=== PATIENT | female | born 1950 | race Caucasian/White ===

== ENCOUNTER 2016-09-12 14:30 | Observation (INO) | payer OTHER, BC ==
--- NOTE | 2016-09-12 14:58 | PDOC ---
History of Present Illness - History of Present Illness Initial Comments: 09/12/16 15:46 The patient is a 66 year old female, with a significant past medical history of hypertension, CAD s/p 2 cardiac stents and a right femoral artery stent (June 2016) on Plavix, diabetes type II, vertigo and polymyalgia, who presents to the emergency department with vertigo, headache and left sided facial tightness for two weeks. She states she has been walking from side to side today and was nervous about falling, however, denies falling. She reports taking her meclizine today without alleviation of her symptoms. She reports the meclizine usually resolves her dizziness, but was prompted to come in to the ED today when the dizziness persisted. She states her headaches and dizziness is intermittent, but reports her current symptoms have lasted for about 3 hours. She freports her headache is a 7/10 in severity and localzed to the left temporal region. She attributes the onset of her symptoms to increased stress during preparation for her daughter's wedding which was this past Friday. She also reports recently changing the prescription in her glasses and developing a headache and dizziness. She states she reverted to her previous pair of glasses with the older prescription, but reports her dizziness persisted. Pt denies any dysarthria, diplopia, vision changes, numbness/weakness/tingling. hearing changes She denies chest pain and shortness of breath. She denies fever, chills, nausea , vomit, diarrhea and constipation. She denies dysuria, frequency, urgency and hematuria. Allergies: NKDA Past surgical history: cholecystectomy, s/p 3 stents (2016) Social history:Denies toxic habits PCP - Dr. Cee Rheumatology - Dr. Mcgee Neurologist - Dr. Cruz <Shreya Lai - Last Filed: 09/12/16 19:13> <Estrada Herrera - Last Filed: 09/12/16 19:19> - General Chief Complaint: Headache Stated Complaint: HEADACHE, DIZZINESS Time Seen by Provider: 09/12/16 14:33 Past History <Shreya Lai - Last Filed: 09/12/16 19:13> - Past Medical History Anemia: No Asthma: No Cancer: No Cardiac Disorders: Yes (CARDIAC STENT X1) CVA: No COPD: No CHF: No Dementia: No Diabetes: Yes (TYPE II) GI Disorders: No Disorders: No HTN: Yes Hypercholesterolemia: Yes Liver Disease: No Suicide Attempt (Hx): No Seizures: No Thyroid Disease: No Other medical history: VERTIGO - Surgical History Abdominal Surgery: No Appendectomy: No Cardiac Surgery: Yes (STENTING) Cholecystectomy: Yes (2015) Lung Surgery: No Neurologic Surgery: No Orthopedic Surgery: Yes (r. knee arthroscopy) - Immunization History TDAP Vaccination: Yes Immunization Up to Date: Yes - Psycho/Social/Smoking Cessation Hx Anxiety: No Suicidal Ideation: No Smoking Status: No Smoking History: Never smoked Have you smoked in the past 12 months: No Number of Cigarettes Smoked Daily: 0 Information on smoking cessation initiated: No Hx Alcohol Use: Yes (OCCAS) Drug/Substance Use Hx: No Substance Use Type: None, Alcohol Hx Substance Use Treatment: No <Estrada Herrera - Last Filed: 09/12/16 19:19> - Past Medical History Allergies/Adverse Reactions: Allergies Allergy/AdvReac Type Severity Reaction Status Date / Time No Known Allergies Allergy Verified 09/12/16 14:33 Home Medications: Ambulatory Orders Aspirin [ASA -] 81 mg PO DAILY 05/13/13 Clopidogrel Bisulfate [Plavix -] 75 mg PO DAILY 05/13/13 Meclizine HCl [Antivert -] 25 mg PO PRN PRN 05/13/13 Metformin HCl [Glucophage -] 500 mg PO BID 05/13/13 Metoprolol Succinate [Toprol XL -] 200 mg PO DAILY 05/13/13 Ranolazine [Ranexa] 500 mg PO DAILY 09/05/14 Omeprazole [Prilosec (RX)] 20 mg PO DAILY 03/13/15 Atorvastatin Ca [Lipitor] 40 mg PO HS 09/12/16 Review of Systems - Review of Systems Able to Perform ROS?: Yes Comments:: 09/12/16 15:47 CONSTITUTIONAL: (+) fatigue. No reported: Fever, Chills, Diaphoresis, Generalized Weakness, Malaise, Loss of Appetite HEENT: No reported: Rhinorrhea, Nasal Congestion, Throat Pain, Throat Swelling, Difficulty Swallowing, Mouth Swelling, Ear Pain, Eye Pain, Visual Changes CARDIOVASCULAR: No reported: Chest Pain, Syncope, Palpitations, Irregular Heart Rate, Lightheadedness, Peripheral Edema RESPIRATORY: No reported: Cough, Shortness of Breath, SOB with Exertion, Orthopnea, Wheezing , Stridor, Hemoptysis GASTROINTESTINAL: No reported: Abdominal pain, Abdominal Distension, Nausea, Vomiting, Diarrhea, Constipation, Melena, Hematochezia GENITOURINARY: No reported: Dysuria, Frequency, Urgency, Hesitancy, Flank Pain, Genital Pain MUSCULOSKELETAL: No reported: Myalgia, Arthralgia, Joint Swelling, Back pain, Neck Pain SKIN: No reported: Rash, Itching, Pallor HEMEATOLOGIC/IMMUNOLOGIC: No reported: Easy Bleeding, Easy Bruising, Lymphadenopathy, Frequent infections ENDOCRINE: No reported: Unexplained Weight Gain, Unexplained Weight Loss, Heat Intolerance , Cold Intolerance NEUROLOGIC: (+) Headache,Vertigo,Unsteady Gait, ""tightness to left face"". No reported: Focal Weakness, Paresthesias, Lightheadedness, Seizure, Mental Status Changes, Incontinence PSYCHIATRIC: No reported: Anxiety, Depression <Shreya Lai - Last Filed: 09/12/16 19:13> *Physical Exam - Vital Signs Last Vital Signs Temp Pulse Resp BP Pulse Ox 98.1 F 82 18 136/81 98 09/12/16 14:30 09/12/16 14:30 09/12/16 14:30 09/12/16 14:30 09/12/16 14:30 - Physical Exam Comments: 09/12/16 15:47 GENERAL: The patient is awake, alert, and fully oriented, Nontoxic - in no acute distress. HEAD: Normocephalic, atraumatic. EYES: extraocular movements intact, sclera anicteric, conjunctiva clear. ENT: Normal voice, Moist mucous membranes. NECK: Normal range of motion, supple LUNGS: Breath sounds equal, clear to auscultation bilaterally. No wheezes, no rhonchi, no rales. HEART: Regular rate and rhythm, without murmur, rub or gallop. ABDOMEN: Soft, nontender, normoactive bowel sounds. No guarding, no rebound.No CVA tenderness EXTREMITIES: Normal range of motion, no edema. No clubbing or cyanosis. No cords, erythema, or tenderness. PSYCH: Normal mood, normal affect. SKIN: Warm, Dry, normal turgor, NEUROLOGICAL: Mental status: The patient is oriented x3. Cranial nerves: Cranial nerves II through XII are intact Motor: The upper extremities are 5 over 5 in all muscle groups. The lower extremities are 5 over 5 in all muscle groups. No pronator drift. Sensation: (+)slight decrease in sensation to light touch on the left face. Sensation is intact to light touch throughout otherwise. Neg romberg Cerebellar: Eleehg-kiwrbm-ecyd is normal in both upper extremities. Heel-knee- alarcon is normal in both lower extremities. Reflexes: 2+ and symmetric in the upper and lower extremities. Gait: Normal. Heel and toe walking are normal. Tandem gait is normal. <Shreya Lai - Last Filed: 09/12/16 19:13> - Vital Signs Last Vital Signs Temp Pulse Resp BP Pulse Ox 98.1 F 82 18 136/81 98 09/12/16 14:30 09/12/16 14:30 09/12/16 14:30 09/12/16 14:30 09/12/16 14:30 <Estrada Herrera - Last Filed: 09/12/16 19:19> Heart Score/ECG Review - ECG Impressions Comment:: 09/12/16 15:35 Twelve-lead EKG was performed and reviewed by me. There is normal sinus rhythm with a normal rate. rate of 79 The axis is normal. The intervals are normal. There is normal R wave progression There are no ST or T wave abnormalities. Impression: Normal twelve-lead EKG <Estrada Herrera - Last Filed: 09/12/16 19:19> ED Treatment Course - LABORATORY CBC & Chemistry Diagram: 09/12/16 12:25 09/12/16 12:25 - RADIOLOGY Radiograph Interpretation: 09/12/16 16:[address] was read by Dr. Ochoa at 16:11 Impression: mild volume loss without gross evidence of acute intracranial pathology. - Medications Given in the ED: ED Medications Discontinued Medications Generic Name Dose Route Start Last Admin Trade Name Freq PRN Reason Stop Dose Admin Diazepam 2 mg 09/12/16 15:15 09/12/16 15:30 Valium - PO 09/12/16 15:16 2 mg ONCE ONE Administration Metoclopramide HCl 10 mg 09/12/16 15:14 09/12/16 15:34 Reglan Injection - IVPUSH 09/12/16 15:15 10 mg ONCE ONE Administration <Shreya Lai - Last Filed: 09/12/16 19:13> - LABORATORY CBC & Chemistry Diagram: 09/12/16 12:25 09/12/16 12:25 <Estrada Herrera - Last Filed: 09/12/16 19:19> Medical Decision Making - Medical Decision Making 09/12/16 Dr. Espinzoa was called at the office at 16:[address] Cee's patient, however, Dr. Espinoza requests [facility] admission for Eduardo Diaz. [facility] were sent a microblog at 17:00 09/12/16 19:11 Dr. Mott was consulted as per the request of the patient's neurologist, Dr. Cruz. The patient's case was discussed. <Shreya Lai - Last Filed: 09/12/16 19:13> - Medical Decision Making 09/12/16 15:35 66y F hx of htn, cad s/p 2 stents, righ femoral artery statent, dm2, polymyalgia rhemuatica presents with complaing of feeling intermittently vertiginous with mild left sided headache and facial numbness/tightness for the past 2 weeks. pt states she has hx of vertigo int he past and took vertigo with releif bu thas not been helping her. pt denies any n/v, cp, palpitations, sob, diaphoresis, abd pain, back pain, neck pain. pts exam noted for mildly deminished sensation on the left face, but exam otherwise unreamrkable including no cerebellar findings, nystagmus nor lateralizing findings exept facial sensation. differential includes vertigo but due to associated facial symptoms, consider central cause will ck labs, will obtain ct head will give asa if head negative reglan/valium will reassess neuro: nancy A portion of this note was documented by [employer] under my direction. I have reviewed the details of the note, within reason, and agree with the documentation with the following case summary and management plan written by me 09/12/16 16:[address] neg for acute pathology pt feeling beter with improved dizziness/headache but still have some facial sensation deficits will admit to obs case dw dr. espinoza, he does not abdmit here, requests hospitalist admission 09/12/16 18:14 case srikanth mcnamara agree with tele observation will consult neuro Case discussed in detail with admitting physician including history, physical exam and ancillary studies. Admitting physician has assumed care for the patient, will follow all pending diagnostics and will complete the evaluation and treatment. 09/12/16 19:19 case srikanth cruz - states dr. Mott is covering for him. case srikanth Mott agree with observation and will likely need MRI in am <Estrada Herrera - Last Filed: 09/12/16 19:19> *DC/Admit/Observation/Transfer - Attestations Scribe Attestion: 09/12/16 15:47 Documentation prepared by Shreya Lai, acting as diagnostic medical sonographer for Estrada Herrera MD, <Shreya Lai - Last Filed: 09/12/16 19:13> - Discharge Dispostion Admit: Yes <Estrada Herrera - Last Filed: 09/12/16 19:19> Diagnosis at time of Disposition: Left facial numbness, Vertigo - Discharge Dispostion Condition at time of disposition: Stable
[2016-09-12] MEDS ORDERED: METOCLOPRAMIDE HCL INJECTION 10 MG/2 ML VIAL IVPUSH ONE (15:14)
[2016-09-12] MEDS ORDERED: diazePAM 2 MG TABLET PO ONE (15:15)
[2016-09-12] MEDS ORDERED: diazePAM 2 MG TABLET ONE (15:25)
[2016-09-12 15:47] LABS: BASOPHIL 1.1 % (0-2.0); EOSINOPHIL 1.8 % (0-4.5); MCH 29.2 pg (25.7-33.7); MCHC 33.9 g/dl (32.0-36.0); MEAN CELL VOLUME 86.3 fl (80-96); NEUTROPHILS 58.7 % (42.8-82.8); PLATELET COUNT 210 K/MM3 (134-434); RDW 13.6 % (11.6-15.6); WHITE BLOOD COUNT 6.8 K/mm3 (4.0-10.8)
[2016-09-12 15:59] LABS: ALBUMIN 3.6 g/dl (3.5-5.0); ALK PHOS 75 U/L (32-92); ANION GAP 5 (8-16); BILIRUBIN,TOTAL 0.4 mg/dl (0.2-1.0); CO2 26 mmol/L (22-28); GLUCOSE,RANDOM 127 mg/dl (74-106); SGOT/AST 19 U/L (10-42); SGPT/ALT 17 U/L (10-40); TOT PROT 6.3 g/dl (6.4-8.3)
[2016-09-12] MEDS ORDERED: ASPIRIN 81 MG CHEWABLE TABLETS PO ONE (16:43)
[2016-09-12] MEDS ORDERED: ASPIRIN 81 MG CHEWABLE TABLETS ONE (16:54)
[2016-09-12 17:03] LABS: PH,URINE 5.5 (4.5-8); URINE APPEARANCE Clear; URINE BILIRUBIN Negative (NEGATIVE); URINE GLUCOSE (UA) Negative (NEGATIVE); URINE KETONE Negative (NEGATIVE); URINE LEUK ESTERASE Negative (NEGATIVE); URINE NITRITE Negative (NEGATIVE); URINE PROTEIN Negative (NEGATIVE); URINE UROBILINOGEN 0.2 E.U/dl (0.2-1.0)
[2016-09-12 17:04] LABS: URINE BLOOD 2+ (NEGATIVE); URINE COLOR YELLOW
[2016-09-12 17:26] LABS: URINE WBC 0-2 (3-5)
--- NOTE | 2016-09-12 17:51 | HP ---
CHIEF COMPLAINT: PCP: HISTORY OF PRESENT ILLNESS: The patient is a 66 year old female, with a significant past medical history of hypertension, CAD s/p 2 cardiac stents and a right femoral artery stent (June 2016) on Plavix, diabetes type II, vertigo and polymyalgia, who presents to the emergency department with vertigo, headache and left sided facial tightness for two weeks. She states she has been walking from side to side today and was nervous about falling, however, denies falling. She reports taking her meclizine today without alleviation of her symptoms. She reports the meclizine usually resolves her dizziness, but was prompted to come in to the ED today when the dizziness persisted. She states her headaches and dizziness is intermittent, but reports her current symptoms have lasted for about 3 hours. She freports her headache is a 7/10 in severity and localzed to the left temporal region. She attributes the onset of her symptoms to increased stress during preparation for her daughter's wedding which was this past Friday. She also reports recently changing the prescription in her glasses and developing a headache and dizziness. She states she reverted to her previous pair of glasses with the older prescription, but reports her dizziness persisted. Pt denies any dysarthria, diplopia, vision changes, numbness/weakness/tingling. hearing changes She denies chest pain and shortness of breath. She denies fever, chills, nausea , vomit, diarrhea and constipation. She denies dysuria, frequency, urgency and hematuria. Allergies: NKDA Past surgical history: cholecystectomy, s/p 3 stents (2016) Social history:Denies toxic habits PCP - Dr. Cee Rheumatology - Dr. Mcgee Neurologist - Dr. Almanzar ER course was notable for: (1)labs, ekg: unremarkable (2)head ct urnemarkable for acute intracranial pathology (3) valium, reglan, asa Recent Travel: PAST MEDICAL HISTORY: PAST SURGICAL HISTORY: Social History: Smoking: Alcohol: Drugs: Family History: Allergies No Known Allergies Allergy (Verified 09/12/16 14:33) HOME MEDICATIONS: Home Medications Medication Instructions Recorded Aspirin [ASA -] 81 mg PO DAILY 05/13/13 Clopidogrel Bisulfate [Plavix -] 75 mg PO DAILY 05/13/13 Meclizine HCl [Antivert -] 25 mg PO PRN PRN 05/13/13 Metformin HCl [Glucophage -] 500 mg PO BID 05/13/13 Metoprolol Succinate [Toprol XL -] 200 mg PO DAILY 05/13/13 Ranolazine [Ranexa] 500 mg PO DAILY 09/05/14 Omeprazole [Prilosec (RX)] 20 mg PO DAILY 03/13/15 REVIEW OF SYSTEMS CONSTITUTIONAL: Absent: fever, chills, diaphoresis, generalized weakness, malaise, loss of appetite, weight change HEENT: Absent: rhinorrhea, nasal congestion, throat pain, throat swelling, difficulty swallowing, mouth swelling, ear pain, eye pain, visual changes CARDIOVASCULAR: Absent: chest pain, syncope, palpitations, irregular heart rate, lightheadedness , peripheral edema RESPIRATORY: Absent: cough, shortness of breath, dyspnea with exertion, orthopnea, wheezing, stridor, hemoptysis GASTROINTESTINAL: Absent: abdominal pain, abdominal distension, nausea, vomiting, diarrhea, constipation, melena, hematochezia GENITOURINARY: Absent: dysuria, frequency, urgency, hesitancy, hematuria, flank pain, genital pain MUSCULOSKELETAL: Absent: myalgia, arthralgia, joint swelling, back pain, neck pain SKIN: Absent: rash, itching, pallor HEMATOLOGIC/IMMUNOLOGIC: Absent: easy bleeding, easy bruising, lymphadenopathy, frequent infections ENDOCRINE: Absent: unexplained weight gain, unexplained weight loss, heat intolerance, cold intolerance NEUROLOGIC: Absent: headache, focal weakness or paresthesias, dizziness, unsteady gait, seizure, mental status changes, bladder or bowel incontinence PSYCHIATRIC: Absent: anxiety, depression, suicidal or homicidal ideation, hallucinations. PHYSICAL EXAMINATION Vital Signs - 24 hr 09/12/16 14:30 Temperature 98.1 F Pulse Rate 82 Respiratory 18 Rate Blood Pressure 136/81 O2 Sat by Pulse 98 Oximetry (%) GENERAL: Awake, alert, and fully oriented, in no acute distress. HEAD: Normal with no signs of trauma. EYES: Pupils equal, round and reactive to light, extraocular movements intact, sclera anicteric, conjunctiva clear. No lid lag. EARS, NOSE, THROAT: Ears normal, nares patent, oropharynx clear without exudates. Moist mucous membranes. NECK: Normal range of motion, supple without lymphadenopathy, JVD, or masses. LUNGS: Breath sounds equal, clear to auscultation bilaterally. No wheezes, and no crackles. No accessory muscle use. HEART: Regular rate and rhythm, normal S1 and S2 without murmur, rub or gallop. ABDOMEN: Soft, nontender, not distended, normoactive bowel sounds, no guarding, no rebound, no masses. No hepatomegaly or splenomegaly. MUSCULOSKELETAL: Normal range of motion at all joints. No bony deformities or tenderness. No CVA tenderness. UPPER EXTREMITIES: 2+ pulses, warm, well-perfused. No cyanosis. No clubbing. No peripheral edema. LOWER EXTREMITIES: 2+ pulses, warm, well-perfused. No calf tenderness. No peripheral edema. NEUROLOGICAL: Cranial nerves II-XII intact. Normal speech. Normal gait. PSYCHIATRIC: Cooperative. Good eye contact. Appropriate mood and affect. SKIN: Warm, dry, normal turgor, no rashes or lesions noted, normal capillary refill. Laboratory Results - last 24 hr 09/12/16 09/12/16 09/12/16 12:25 12:25 16:55 WBC 6.8 D RBC 4.19 Hgb 12.3 Hct 36.2 MCV 86.3 MCHC 33.9 RDW 13.6 Plt Count 210 D MPV 9.0 Neutrophils % 58.7 Lymphocytes % 31.8 D Monocytes % 6.6 Eosinophils % 1.8 Basophils % 1.1 Sodium 138 Potassium 4.0 Chloride 107 Carbon Dioxide 26 Anion Gap 5 L BUN 12 Creatinine 1.0 Creat Clearance w eGFR 55.14 Random Glucose 127 H Calcium 9.0 Total Bilirubin 0.4 D AST 19 ALT 17 Alkaline Phosphatase 75 Total Protein 6.3 L Albumin 3.6 Urine Color Yellow Urine Appearance Clear Urine pH 5.5 Ur Specific [place] 1.020 Urine Protein Negative Urine Glucose (UA) Negative Urine Ketones Negative Urine Blood 2+ H Urine Nitrite Negative Urine Bilirubin Negative Urine Urobilinogen 0.2 e.u/dl Ur Leukocyte Esterase Negative Urine RBC 2-4 Urine WBC 0-2 ASSESSMENT/PLAN:
[2016-09-12] MEDS ORDERED: MECLIZINE HCL 25 MG TABLET (FP) PO PRN (18:13)
[2016-09-12] MEDS ORDERED: ATORVASTATIN CA 80 MG TABLET (FP) PO ONE (18:14)
[2016-09-12 20:53] VITALS: BMI 29.5
[2016-09-12] MEDS ORDERED: INSULIN SLIDING SCALE (NOVOLOG) 1 VIAL SQ SCH (22:00)
[2016-09-12] MEDS ORDERED: diazePAM 5 MG TABLET PO ONE (22:00)
--- NOTE | 2016-09-12 22:51 | HP ---
CHIEF COMPLAINT: headache, dizziness PCP: Dr. Jaylon Cee HISTORY OF PRESENT ILLNESS: This is a 66 year old female with PMH HTN, CAD s/p stents x 2, R femoral artery stent 06/2016, DM2, vertigo, polymyalgia presented to the ED with dizziness and headache x 2 weeks, not relieved with meclizine. Pt states that it became much more severe today with left facial tightness and numbness. Pt states it is better now, but still with dull pain to left side of head, pt points to jehovah's witness. Denies nausea, vomiting, abdominal pain. ER course was notable for: (1) CT head with no acute changes (2) labs WNL Recent Travel: pt denies PAST MEDICAL HISTORY: HTN CAD s/p 2 stents DM2 vertigo polymyalgia PAST SURGICAL HISTORY: R femoral artery stent 06/2016 cholcystectomy 2015 R knee arthroscopy Social History: Smoking: pt denies Alcohol: pt denies Drugs: pt denies Family History: mother age 70s, CVA Alzhemier's disease father age 63, liver CA, HTN (not a drinker) brother age 69, cirrhosis (ETOH), DM daughter with IBS Allergies No Known Allergies Allergy (Verified 09/12/16 14:33) HOME MEDICATIONS: 3 Medication Instructions Recorded Aspirin [ASA -] 81 mg PO DAILY 05/13/13 Clopidogrel Bisulfate [Plavix -] 75 mg PO DAILY 05/13/13 Meclizine HCl [Antivert -] 25 mg PO PRN PRN 05/13/13 Metformin HCl [Glucophage -] 500 mg PO BID 05/13/13 Metoprolol Succinate [Toprol XL -] 200 mg PO DAILY 05/13/13 Ranolazine [Ranexa] 500 mg PO DAILY 09/05/14 Omeprazole [Prilosec (RX)] 20 mg PO DAILY 03/13/15 Atorvastatin Ca [Lipitor] 40 mg PO HS 09/12/16 REVIEW OF SYSTEMS CONSTITUTIONAL: Absent: fever, chills, diaphoresis, generalized weakness, malaise, loss of appetite, weight change HEENT: Absent: rhinorrhea, nasal congestion, throat pain, throat swelling, difficulty swallowing, mouth swelling, ear pain, eye pain, visual changes CARDIOVASCULAR: Absent: chest pain, syncope, palpitations, irregular heart rate, lightheadedness , peripheral edema RESPIRATORY: Absent: cough, shortness of breath, dyspnea with exertion, orthopnea, wheezing, stridor, hemoptysis GASTROINTESTINAL: Absent: abdominal pain, abdominal distension, nausea, vomiting, diarrhea, constipation, melena, hematochezia GENITOURINARY: Absent: dysuria, frequency, urgency, hesitancy, hematuria, flank pain, genital pain MUSCULOSKELETAL: Absent: myalgia, arthralgia, joint swelling, back pain, neck pain SKIN: Absent: rash, itching, pallor HEMATOLOGIC/IMMUNOLOGIC: Absent: easy bleeding, easy bruising, lymphadenopathy, frequent infections ENDOCRINE: Absent: unexplained weight gain, unexplained weight loss, heat intolerance, cold intolerance NEUROLOGIC: Present: dizziness, headache, unsteady gait Absent: focal weakness or paresthesias, seizure, mental status changes, bladder or bowel incontinence PSYCHIATRIC: Absent: anxiety, depression, suicidal or homicidal ideation, hallucinations. PHYSICAL EXAMINATION Vital Signs - 24 hr 3 09/12/16 09/12/16 09/12/16 14:30 18:48 22:05 Temperature 98.1 F 97.8 F 97.6 F Pulse Rate 82 82 Pulse Rate [ 86 Left Apical] Respiratory 18 16 18 Rate Blood Pressure 136/81 94/55 Blood Pressure 137/90 [Left Arm] O2 Sat by Pulse 98 99 100 Oximetry (%) GENERAL: Awake, alert, and fully oriented, in no acute distress. HEAD: Normal with no signs of trauma. EYES: Pupils equal, round and reactive to light, extraocular movements intact, sclera anicteric, conjunctiva clear. No lid lag. EARS, NOSE, THROAT: Ears normal, nares patent, oropharynx clear without exudates. Moist mucous membranes. NECK: Normal range of motion, supple without lymphadenopathy, JVD, or masses. LUNGS: Breath sounds equal, clear to auscultation bilaterally. No wheezes, and no crackles. No accessory muscle use. HEART: Regular rate and rhythm, normal S1 and S2 without murmur, rub or gallop. ABDOMEN: Soft, nontender, not distended, normoactive bowel sounds, no guarding, no rebound, no masses. No hepatomegaly or splenomegaly. MUSCULOSKELETAL: Normal range of motion at all joints. No bony deformities or tenderness. No CVA tenderness. UPPER EXTREMITIES: 2+ pulses, warm, well-perfused. No cyanosis. No clubbing. No peripheral edema. LOWER EXTREMITIES: 2+ pulses, warm, well-perfused. No calf tenderness. No peripheral edema. NEUROLOGICAL: Cranial nerves II-XII intact. Normal speech. Muscle strength: right arm raise 4+/5, left 5/5, elbow flexion 5/5 bilat, extension 5/5 bilat, leg raise 4+/5 bilat, plantar flexion and dorsiflexion 5/5 bilat. light touch intact and equal right and left face and right and left upper extremity PSYCHIATRIC: Cooperative. Good eye contact. Appropriate mood and affect. SKIN: Warm, dry, normal turgor, no rashes or lesions noted, normal capillary refill. Laboratory Results - last 24 hr 3 09/12/16 09/12/16 09/12/16 09/12/16 12:25 12:25 16:55 22:52 WBC 6.8 D RBC 4.19 Hgb 12.3 Hct 36.2 MCV 86.3 MCHC 33.9 RDW 13.6 Plt Count 210 D MPV 9.0 Neutrophils % 58.7 Lymphocytes % 31.8 D Monocytes % 6.6 Eosinophils % 1.8 Basophils % 1.1 Sodium 138 Potassium 4.0 Chloride 107 Carbon Dioxide 26 Anion Gap 5 L BUN 12 Creatinine 1.0 Creat Clearance w eGFR 55.14 POC Glucometer 121 Random Glucose 127 H Calcium 9.0 Total Bilirubin 0.4 D AST 19 ALT 17 Alkaline Phosphatase 75 Total Protein 6.3 L Albumin 3.6 Urine Color Yellow Urine Appearance Clear Urine pH 5.5 Ur Specific [place] 1.020 Urine Protein Negative Urine Glucose (UA) Negative Urine Ketones Negative Urine Blood 2+ H Urine Nitrite Negative Urine Bilirubin Negative Urine Urobilinogen 0.2 e.u/dl Ur Leukocyte Esterase Negative Urine RBC 2-4 Urine WBC 0-2 CT/HEAD CT WITHOUT CONTRAST Left side facial numbness CT scan of the brain without intravenous contrast. There is mild volume loss, ventricular dilatation and periventricular chronic microvascular ischemic changes. No mass lesion, focal acute infarct or intracranial hemorrhage is seen. There is no shift of the midline structures. Minimal mucosal thickening in the ethmoid air cells. The mastoid air cells are well aerated and the calvarium is intact. Impression Mild volume loss without gross evidence of acute intracranial pathology. Correlate clinically to determine further evaluation and follow-up. Reported By: Jessica Ochoa MD 09/12/16 1611 CHEST X-RAY PORTABLE* Preadmission. Baseline. Portable chest x ray A frontal view of the chest was obtained. Compared to prior chest x-ray dated 09/21/2014 The cardiac silhouette is within normal limits in size with mild unfolding of the aortic arch. The lung is clear. Mild to moderate elevation of the left hemidiaphragm. Mediastinum and visualized osseous structures appear intact . Impression: No significant interval change or acute lung disease is present. Reported By: Jessica Ochoa MD 09/12/16 1836 ECG NSR, rate 79, QTC 415 No STT wave changes ASSESSMENT/PLAN: 66yF with PMH HTN, CAD s/p 2 stents, R fem artery stent, DM2, vertigo, polymyalgia presented with dizziness, headache and L facial tightness. headache, dizziness: vertigo vs r/o TIA/CVA - MRI ordered - neuro consult - meclizine PRN - ESR/CRP to r/o temporal arteritis given temporal pain HTN/CAD - cont home meds, recent BP reading low after valium, hold parameters in place. - cont home ASA, home lipitor increased to 80 - cont plavix, ranexa DM2 - hold metformin for now - novolog SS with BGM AC/HS DVT PPX - chemoprophylaxis deferred as Expected LOS less than 48h, reassess indication if stay exceeds FEN - tolerating po - bmp in am - diabetic diet Dispo: Pt currently requires inpatient observation for management of her emergent condition. Visit type - Emergency Visit Emergency Visit: Yes ED Registration Date: 09/12/16 Care time: The patient presented to the Emergency Department on the above date and was hospitalized for further evaluation of their emergent condition. - New Patient This patient is new to me today: Yes Date on this admission: 09/12/16 - Critical Care Critical Care patient: No
[2016-09-13] MEDS: INSULIN SLIDING SCALE (NOVOLOG) 1 VIAL SQ SCH ×2 (06:42→12:21)
[2016-09-13] MEDS ORDERED: metFORMIN HCL 500 MG TABLET (FP) PO SCH (07:00)
--- NOTE | 2016-09-13 08:08 | EKG ---
Test Reason : Blood Pressure : / mmHG Vent. Rate : 079 BPM Atrial Rate : 079 BPM P-R Int : 164 ms QRS Dur : 088 ms QT Int : 362 ms P-R-T Axes : 034 059 052 degrees QTc Int : 415 ms NORMAL SINUS RHYTHM NORMAL ECG NO PREVIOUS ECGS AVAILABLE Confirmed by BHASKAR SIMPSON MD ([id number]) on 09/13/2016 8:07:31 AM Referred By: MD PENA Confirmed By:BHASKAR SIMPSON MD
--- NOTE | 2016-09-13 08:35 | CON.NEURO ---
Consult - History of Present Illness History of Present Illness: cc 66 year old female hsitory of HTN, CAD s/p stent , DM , polymyalgia rheumatica ( last esr was 30s , and not being treated wtih medication at this time). She felt vertigo sensation and she also felt there is mild headhace and some stiffness in her neck and it was not going away. she denies tinging or numbness, dysphagia , dysarthria or diplopia. She denies any history of stroke. she is nonsmoker. she denies any generalized aches or pain, no fever or jaw claudication. - Past Medical History Cardio/Vascular: Yes: CAD, HTN, Hyperlipdemia ...LMP Comment: PATIENT IS A 66 YEAR OLD ...: No Endocrine: Yes: Diabetes Mellitus - Alcohol/Substance Use Hx Alcohol Use: Yes (OCCAS) - Smoking History Smoking history: Never smoked Have you smoked in the past 12 months: No Aproximately how many cigarettes per day: 0 Home Medications - Allergies Allergies/Adverse Reactions: Allergies Allergy/AdvReac Type Severity Reaction Status Date / Time No Known Allergies Allergy Verified 09/12/16 14:33 - Home Medications Home Medications: Ambulatory Orders Aspirin [ASA -] 81 mg PO DAILY 05/13/13 Clopidogrel Bisulfate [Plavix -] 75 mg PO DAILY 05/13/13 Meclizine HCl [Antivert -] 25 mg PO PRN PRN 05/13/13 Metformin HCl [Glucophage -] 500 mg PO BID 05/13/13 Metoprolol Succinate [Toprol XL -] 200 mg PO DAILY 05/13/13 Ranolazine [Ranexa] 500 mg PO DAILY 09/05/14 Omeprazole [Prilosec (RX)] 20 mg PO DAILY 03/13/15 Atorvastatin Ca [Lipitor] 40 mg PO HS 09/12/16 Physical Exam-Neuro Vital Signs: Vital Signs Temperature 98.5 F 09/13/16 06:16 Pulse Rate 74 09/13/16 06:16 Respiratory Rate 18 09/13/16 06:16 Blood Pressure 119/67 09/13/16 06:16 O2 Sat by Pulse Oximetry (%) 100 09/13/16 06:16 NIH Stroke Scale - Total Score NIH Stroke Scale Score: 0 Assessment/Plan cc 66 year old female hsitory of HTN, CAD s/p stent , DM , polymyalgia rheumatica ( last esr was 30s , and not being treated wtih medication at this time). She felt vertigo sensation and she also felt there is mild headhace and some stiffness in her neck and it was not going away. she denies tinging or numbness, dysphagia , dysarthria or diplopia. She denies any history of stroke. she is nonsmoker. she denies any generalized aches or pain, no fever or jaw claudication. PAST MEDICAL HISTORY: as above HTN CAD s/p 2 stents DM2 vertigo polymyalgia PAST SURGICAL HISTORY: R femoral artery stent 06/2016 cholcystectomy 2014 R knee arthroscopy HOME MEDICATIONS: 3 Medication Instructions Recorded Aspirin [ASA -] 81 mg PO DAILY 05/13/13 Clopidogrel Bisulfate [Plavix -] 75 mg PO DAILY 05/13/13 Meclizine HCl [Antivert -] 25 mg PO PRN PRN 05/13/13 Metformin HCl [Glucophage -] 500 mg PO BID 05/13/13 Metoprolol Succinate [Toprol XL -] 200 mg PO DAILY 05/13/13 Ranolazine [Ranexa] 500 mg PO DAILY 09/05/14 Omeprazole [Prilosec (RX)] 20 mg PO DAILY 03/13/15 Atorvastatin Ca [Lipitor] 40 mg PO HS 09/12/16 Neurological Examination alert oriented x 3 , follow command CN all intact eomi, and no nystagmus was seen FTN and heel to alarcon is normal, no nystagmus was seen sensation is normal no temporal tenderness ct head unremarkable Assessment- Most likley she had Benign Positional vertigo, and mild headache could be tension headache ( unlikley to be temporal arteritis ) Plan-- given history of polymyalgia suggest to do esr - mri of brain to rule out stroke - continue aspirin , plavix and statin as before PT if mri of brain and esr is normal, she can be discharged and follow up with me thanks mayra mauro MD
[2016-09-13] MEDS ORDERED: SODIUM CHLORIDE 1,000 ML IV STA (08:42)
[2016-09-13 08:51] LABS: ANION GAP 5 (8-16); CALCIUM 8.7 mg/dl (8.4-10.2); CO2 25 mmol/L (22-28); CREATININE 0.9 mg/dl (0.6-1.3); GLUCOSE,RANDOM 179 mg/dl (74-106); MAGNESIUM 1.6 mg/dL (1.8-2.4); PHOSPHOROUS 2.6 mg/dl (2.5-4.6)
[2016-09-13] MEDS ORDERED: METOCLOPRAMIDE HCL INJECTION 10 MG/2 ML VIAL IVPUSH ONE (09:15)
[2016-09-13] MEDS ORDERED: ACETAMINOPHEN 1000 MG/100 ML VIAL (NON FORMULARY) IVPB ONE (09:15)
[2016-09-13 09:55] LABS: BASOPHIL 0.2 % (0-2.0); EOSINOPHIL 1.3 % (0-4.5); MCH 28.1 pg (25.7-33.7); MCHC 32.4 g/dl (32.0-36.0); MEAN CELL VOLUME 86.8 fl (80-96); MEAN PLT VOLUME 9.4 fl (7.5-11.1); NEUTROPHILS 63.1 % (42.8-82.8); PLATELET COUNT 205 K/MM3 (134-434); RDW 13.7 % (11.6-15.6); WHITE BLOOD COUNT 6.2 K/mm3 (4.0-10.8)
[2016-09-13] MEDS ORDERED: METOPROLOL SUCCINATE 200 MG TAB.SR.24H PO SCH ×2 (10:00)
[2016-09-13] MEDS ORDERED: PANTOPRAZOLE 20 MG TABLET (FP) PO SCH (10:00)
[2016-09-13] MEDS ORDERED: MAGNESIUM SULF 50% (8.12 MEQ/2 ML-1 GM VIAL) IVPB ONE (10:00)
[2016-09-13] MEDS ORDERED: METOPROLOL SUCCINATE 100 MG TAB.SR.24H (FP) PO SCH (10:00)
[2016-09-13] MEDS ORDERED: CLOPIDOGREL BISULFATE 75 MG TABLET (FP) PO SCH (10:00)
[2016-09-13] MEDS ORDERED: RANOLAZINE E.R. 500 MG TABLET (FP) PO SCH (10:00)
[2016-09-13] MEDS ORDERED: ASPIRIN 81 MG CHEWABLE TABLETS PO SCH (10:00)
[2016-09-13] MEDS: MAGNESIUM SULF 50% (8.12 MEQ/2 ML-1 GM VIAL) IVPB ONE ×2 (10:05→10:12)
[2016-09-13 14:27] VITALS: BP 117/66; PULSE 72; TEMP 98.6
--- NOTE | 2016-09-13 14:34 | DS ---
Physical Exam: SUBJECTIVE: Patient seen and examined, reports feeling better, denies any headache, blurred vision, or dizziness OBJECTIVE:This is a 66 year old female with PMH HTN, CAD s/p stents x 2, R femoral artery stent 06/2016, DM2, vertigo, polymyalgia presented to the ED with dizziness and headache x 2 weeks, not relieved with meclizine. Pt states that it became much more severe today with left facial tightness and numbness. Pt states it is better now, but still with dull pain to left side of head, pt points to restorationist. Denies nausea, vomiting, abdominal pain. ER course was notable for: (1) CT head with no acute changes (2) labs WNL Vital Signs Period Temp Pulse Resp BP Sys/Peguero Pulse Ox Last 24 Hr 97.6 F-98.6 F 72-82 18-18 94-119/55-71 97-100 PHYSICAL EXAM GENERAL: The patient is awake, alert, and fully oriented, Nontoxic - in no acute distress. HEAD: Normocephalic, atraumatic. EYES: extraocular movements intact, sclera anicteric, conjunctiva clear. ENT: Normal voice, Moist mucous membranes. NECK: Normal range of motion, supple LUNGS: Breath sounds equal, clear to auscultation bilaterally. No wheezes, no rhonchi, no rales. HEART: Regular rate and rhythm, without murmur, rub or gallop. ABDOMEN: Soft, nontender, normoactive bowel sounds. No guarding, no rebound.No CVA tenderness EXTREMITIES: Normal range of motion, no edema. No clubbing or cyanosis. No cords, erythema, or tenderness. PSYCH: Normal mood, normal affect. NEUROLOGICAL: Mental status: The patient is oriented x3. Cranial nerves: Cranial nerves II through XII are intact Motor: The upper extremities are 5 over 5 in all muscle groups. The lower extremities are 5 over 5 in all muscle groups. No pronator drift. Neg romberg Cerebellar: [id number]-uqzihy-nulg is normal in both upper extremities. Ixff-[id number] is normal in both lower extremities. Reflexes: 2+ and symmetric in the upper and lower extremities. Gait: Normal. Heel and toe walking are normal. Tandem gait is normal. SKIN: Warm, Dry, normal turgor, LABS Laboratory Results - last 24 hr CBC WBC 6.2 K/mm3 (4.0-10.8) 09/13/16 07:00 RBC 4.47 M/mm3 (3.60-5.2) 09/13/16 07:00 Hgb 12.6 GM/dl (10.7-15.3) 09/13/16 07:00 Hct 38.8 % (32.4-45.2) 09/13/16 07:00 MCV 86.8 fl (80-96) 09/13/16 07:00 MCHC 32.4 g/dl (32.0-36.0) 09/13/16 07:00 RDW 13.7 % (11.6-15.6) 09/13/16 07:00 Plt Count 205 K/MM3 (134-434) 09/13/16 07:00 MPV 9.4 fl (7.5-11.1) 09/13/16 07:00 Neutrophils % 63.1 % (42.8-82.8) 09/13/16 07:00 Lymphocytes % 30.0 % (8-40) 09/13/16 07:00 Monocytes % 5.4 % (3.8-10.2) 09/13/16 07:00 Eosinophils % 1.3 % (0-4.5) 09/13/16 07:00 Basophils % 0.2 % (0-2.0) 09/13/16 07:00 ESR 35 mm/hr (0-30) H 09/13/16 07:00 CMP Sodium 137 mmol/L (136-145) 09/13/16 07:00 Potassium 3.7 mmol/L (3.5-5.1) 09/13/16 07:00 Chloride 107 mmol/L (98-107) 09/13/16 07:00 Carbon Dioxide 25 mmol/L (22-28) 09/13/16 07:00 Anion Gap 5 (8-16) L 09/13/16 07:00 BUN 12 mg/dl (7-18) 09/13/16 07:00 Creatinine 0.9 mg/dl (0.6-1.3) 09/13/16 07:00 Creat Clearance w eGFR 55.14 (>60) 09/12/16 12:25 POC Glucometer 143 UNITS (()) 09/13/16 11:33 Random Glucose 179 mg/dl (74-106) H D 09/13/16 07:00 Calcium 8.7 mg/dl (8.4-10.2) 09/13/16 07:00 Phosphorus 2.6 mg/dl (2.5-4.6) 09/13/16 07:00 Magnesium 1.6 mg/dL (1.8-2.4) L 09/13/16 07:00 Total Bilirubin 0.4 mg/dl (0.2-1.0) D 09/12/16 12:25 AST 19 U/L (10-42) 09/12/16 12:25 ALT 17 U/L (10-40) 09/12/16 12:25 Alkaline Phosphatase 75 U/L (32-92) 09/12/16 12:25 C-Reactive Protein < 0.3 MG/DL (0.00-0.3) 09/13/16 07:00 Total Protein 6.3 g/dl (6.4-8.3) L 09/12/16 12:25 Albumin 3.6 g/dl (3.5-5.0) 09/12/16 12:[address]/HEAD CT WITHOUT CONTRAST Left side facial numbness CT scan of the brain without intravenous contrast. There is mild volume loss, ventricular dilatation and periventricular chronic microvascular ischemic changes. No mass lesion, focal acute infarct or intracranial hemorrhage is seen. There is no shift of the midline structures. Minimal mucosal thickening in the ethmoid air cells. The mastoid air cells are well aerated and the calvarium is intact. Impression Mild volume loss without gross evidence of acute intracranial pathology. Correlate clinically to determine further evaluation and follow-up. Reported By: Jessica Ochoa MD 09/12/16 1611 CHEST X-RAY PORTABLE* Preadmission. Baseline. Portable chest x ray A frontal view of the chest was obtained. Compared to prior chest x-ray dated 09/21/2014 The cardiac silhouette is within normal limits in size with mild unfolding of the aortic arch. The lung is clear. Mild to moderate elevation of the left hemidiaphragm. Mediastinum and visualized osseous structures appear intact . Impression: No significant interval change or acute lung disease is present. Reported By: Jessica Ochoa MD 09/12/16 1836 ECG NSR, rate 79, QTC 415 No STT wave changes HOSPITAL COURSE: Patient was admitted from the emergency department to observation for headache, dizziness: vertigo vs r/o TIA/CVA. MRI of brain, no evidence of edema , acute ischemia, or hemorrhage. Dr Cintron, neurologist was consulted and followed. meclizine was given PRN. patient's symptoms was consistent with migraines. IV tylenol, reglan, magnesium was given and patient reports relief from medications. ESR was noted to be slightly elevated, however, patient has a history of polymalgia rheumatica. CRP was WNL. She has a past medical history of hyprtensio and CAD. Home meds was continued and hold parameters were in place. Home ASA, lipitir, plavix and ranexa was continued. PLAN * continue home medications * resume heart healthy diet * follow up with neurologist within 1 week * return precautions reviewed ie chest pain dizziness, shortness of breath. Date of Admission:09/12/16 Date of Discharge: 09/13/16 Minutes to complete discharge: 45 Discharge Summary Reason For Visit: FACIAL NUMBNESS Current Active Problems Left facial numbness (Acute) Vertigo (Acute) Condition: Improved - Instructions Diet, Activity, Other Instructions: resume regular low sodium/low cholestrol diet please resume all medications as prescribed continue taking meclizine as needed for vertigo please follow up with the neurologist within 2 weeks if any new or alarming symptoms develop please return to the emergency department. Referrals: Jean-Paul Mott MD [Staff Physician] - Jaylon Cee MD [Primary Care Provider] - Disposition: HOME - Home Medications Comprehensive Discharge Medication List: Ambulatory Orders Aspirin [ASA -] 81 mg PO DAILY 05/13/13 Clopidogrel Bisulfate [Plavix -] 75 mg PO DAILY 05/13/13 Meclizine HCl [Antivert -] 25 mg PO PRN PRN 05/13/13 Metformin HCl [Glucophage -] 500 mg PO BID 05/13/13 Metoprolol Succinate [Toprol XL -] 200 mg PO DAILY 05/13/13 Ranolazine [Ranexa] 500 mg PO DAILY 09/05/14 Omeprazole [Prilosec (RX)] 20 mg PO DAILY 03/13/15 Atorvastatin Ca [Lipitor] 40 mg PO HS 09/12/16 This patient is new to me today: Yes Date on this admission: 09/13/16 Emergency Visit: Yes ED Registration Date: 09/12/16 Care time: The patient presented to the Emergency Department on the above date and was hospitalized for further evaluation of their emergent condition. Critical Care patient: No - Discharge Referral Referred to [facility] No
== END 2016-09-13 15:35 | disposition home or self-care (01) ==
LOC: FER 14:30 → SUPCPDRO 14:30 → FM/S 19:06
PROVIDERS: ADMIT Internal Medicine; ATTEND Nurse Practitioner Family
PROC: 3E033NZ Introduction of Analgesics, Hypnotics, Sedatives into Peripheral Vein, Percutaneous Approach (ICD-10-PCS; principal; 2016-09-12)
PROC: 3E033GC Introduction of Other Therapeutic Substance into Peripheral Vein, Percutaneous Approach (ICD-10-PCS; 2016-09-12)
PROC: 3E0337Z Introduction of Electrolytic and Water Balance Substance into Peripheral Vein, Percutaneous Approach (ICD-10-PCS; 2016-09-12)
DX: R20.0 Anesthesia of skin (principal); R42 Dizziness and giddiness; I10 Essential (primary) hypertension; I25.10 Atherosclerotic heart disease of native coronary artery without angina pectoris; E11.9 Type 2 diabetes mellitus without complications; E78.00 Pure hypercholesterolemia, unspecified; M35.3 Polymyalgia rheumatica; Z95.5 Presence of coronary angioplasty implant and graft; Z95.820 Peripheral vascular angioplasty status with implants and grafts; Z79.01 Long term (current) use of anticoagulants; Z79.82 Long term (current) use of aspirin; Z79.84 Long term (current) use of oral hypoglycemic drugs
CPT/HCPCS: 36415; 70450-TC; 70551-TC; 71010-TC; 80048; 80053; 81003; 81015; 83735; 84100; 85025; 85651; 86140; 93005; 97116-GP; 97161-GP; 99285-25; G0378

== ENCOUNTER 2016-12-08 12:00 | Emergency (ER) | payer OTHER, BC ==
[2016-12-08 12:08] VITALS: BMI 29.9
[2016-12-08] MEDS ORDERED: ASPIRIN 325 MG TABLET PO ONE (12:10)
[2016-12-08] MEDS ORDERED: ASPIRIN 325 MG TABLET ONE (12:13)
[2016-12-08 12:31] LABS: BASOPHIL 0.8 % (0-2.0); EOSINOPHIL 2.6 % (0-4.5); MCH 28.1 pg (25.7-33.7); MCHC 32.9 g/dl (32.0-36.0); MEAN CELL VOLUME 85.2 fl (80-96); MEAN PLT VOLUME 8.8 fl (7.5-11.1); NEUTROPHILS 52.8 % (42.8-82.8); PLATELET COUNT 206 K/MM3 (134-434); RDW 12.9 % (11.6-15.6); WHITE BLOOD COUNT 5.8 K/mm3 (4.0-10.8)
--- NOTE | 2016-12-08 12:34 | PDOC ---
History of Present Illness - General Chief Complaint: Chest Pain Stated Complaint: CHEST PAIN Time Seen by Provider: 12/08/16 12:10 History Source: Patient Exam Limitations: No Limitations - History of Present Illness Initial Comments: 12/08/16 12:30 66 yo F with h/o HTN DM HLD, stents CAD, most recent 06/24 , PVD right femoral art stent , here with co chest pain. started intermittently few weeks ago. c/o chest pressure. . lasted few minutes. no radiation. no associated diaphoresis. mild assoc sob. no chest pain currently. did have a preoperative stress test last week 4 days ago at [facility] by her hogshead inspector. unsure of results. h/o CAD in family, mother in her 70's. pcp dr. crowley. 12/08/16 12:38 Past History - Past Medical History Allergies/Adverse Reactions: Allergies Allergy/AdvReac Type Severity Reaction Status Date / Time No Known Allergies Allergy Verified 12/08/16 12:02 Home Medications: Ambulatory Orders Aspirin [ASA -] 81 mg PO DAILY 05/13/13 Clopidogrel Bisulfate [Plavix -] 75 mg PO DAILY 05/13/13 Meclizine HCl [Antivert -] 25 mg PO PRN PRN 05/13/13 Metformin HCl [Glucophage -] 500 mg PO BID 05/13/13 Metoprolol Succinate [Toprol XL -] 100 mg PO DAILY 05/13/13 Ranolazine [Ranexa] 1,000 mg PO DAILY 09/05/14 Omeprazole [Prilosec (RX)] 20 mg PO DAILY 03/13/15 Atorvastatin Ca [Lipitor] 40 mg PO HS 09/12/16 Valsartan 80 mg PO DAILY 12/08/16 Anemia: No Asthma: No Cancer: No Cardiac Disorders: Yes (CARDIAC STENT) CVA: No COPD: No CHF: No Dementia: No Diabetes: Yes (TYPE II) GI Disorders: No Disorders: No HTN: Yes Hypercholesterolemia: Yes Liver Disease: No Seizures: No Thyroid Disease: No - Surgical History Abdominal Surgery: No Appendectomy: No Cardiac Surgery: Yes (STENTING) Cholecystectomy: Yes (2014) Lung Surgery: No Neurologic Surgery: No Orthopedic Surgery: Yes (r. knee arthroscopy) - Immunization History TDAP Vaccination: Yes Immunization Up to Date: Yes - Suicide/Smoking/Psychosocial Hx Smoking Status: No Smoking History: Never smoked Have you smoked in the past 12 months: No Number of Cigarettes Smoked Daily: 0 Information on smoking cessation initiated: No Hx Alcohol Use: No Drug/Substance Use Hx: No Substance Use Type: None, Alcohol Hx Substance Use Treatment: No Cardiac Specific PMH - Complaint Specific PMHX Pacemaker: No Review of Systems - Review of Systems Constitutional: No: Chills, Diaphoresis HEENTM: No: Blurred Vision Respiratory: No: Cough, Orthopnea Cardiac (ROS): Yes: Chest Pain. No: Edema, Irregular Heart Rate : No: Burning, Incontinence Musculoskeletal: No: Back Pain Integumentary: No: Bruising Neurological: No: Headache All Other Systems: Reviewed and Negative *Physical Exam - Vital Signs Last Vital Signs Temp Pulse Resp BP Pulse Ox 98.1 F 85 13 149/97 98 12/08/16 12:00 12/08/16 12:00 12/08/16 12:00 12/08/16 12:00 12/08/16 12:00 - Physical Exam General Appearance: Yes: Nourished, Appropriately Dressed Neck: positive: Trachea midline Respiratory/Chest: positive: Lungs Clear, Normal Breath Sounds Cardiovascular: positive: Regular Rhythm, Regular Rate, S1, S2. negative: Edema Gastrointestinal/Abdominal: positive: Normal Bowel Sounds, Flat, Soft. negative : Tender Musculoskeletal: positive: Normal Inspection. negative: CVA Tenderness Extremity: positive: Normal Capillary Refill, Normal Inspection, Normal Range of Motion Integumentary: positive: Normal Color, Dry, Warm Neurologic: positive: Fully Oriented, Alert, Normal Mood/Affect, Normal Response Heart Score/ECG Review #1 General ECG Interpretation: Sinus Rhythm, Normal Rate (91), Normal Intervals, No acute ischemic changes (no st/ t wave changes) ED Treatment Course - LABORATORY CBC & Chemistry Diagram: 12/08/16 12:15 12/08/16 12:15 - ADDITIONAL ORDERS Additional order review: Laboratory Results 12/08/16 12/08/16 12:15 12:15 Sodium 137 Potassium 4.1 Chloride 107 Carbon Dioxide 27 Anion Gap 3 L BUN 11 Creatinine 0.9 Creat Clearance w eGFR > 60 Random Glucose 137 H D Calcium 9.1 Total Bilirubin 0.6 D AST 21 ALT 14 Alkaline Phosphatase 76 Troponin I < 0.03 L Total Protein 6.8 Albumin 3.7 12/08/16 12:15 RBC 4.73 MCV 85.2 MCHC 32.9 RDW 12.9 MPV 8.8 Neutrophils % 52.8 Lymphocytes % 35.4 Monocytes % 8.4 Eosinophils % 2.6 D Basophils % 0.8 D - RADIOLOGY Radiology Studies Ordered: Category Date Time Status CHEST PA & LAT [RAD] Stat Radiology 12/08/16 12:10 Completed - Medications Given in the ED: ED Medications Discontinued Medications Generic Name Dose Route Start Last Admin Trade Name Trina PRN Reason Stop Dose Admin Aspirin 325 mg 12/08/16 12:10 12/08/16 12:14 Asa - PO 12/08/16 12:11 325 mg ONCE ONE Administration Medical Decision Making - Medical Decision Making 12/08/16 12:33 66 yo F with h/;o cad, DM HTN HLD here with c/o chest pain. recent stress but results unknow. will try to obtain results from hogshead inspector. due to high risk pt will require observation on telemetry r/o acs. cxr r/o other causes such as infection. asa, labs ekg . 12/08/16 12:37 dr Jaylon Cee 12/08/16 13:49 pt initial labs emely. d/w covering hogshead inspector DR Ruby at [facility], for pt hogshead inspector. Dr Ashley Dale, told stress was abnormal 4 days ago for inferolateral ischemia. request that pt be transferred to [facility]. d/w pt . agreeable to transfer to telemetry at [facility]. *DC/Admit/Observation/Transfer Diagnosis at time of Disposition: Angina at rest - Discharge Dispostion Disposition: TRANSFER ACUTE CARE/OTHER HOSP Condition at time of disposition: Stable
[2016-12-08 12:51] LABS: ALBUMIN 3.7 g/dl (3.5-5.0); ALK PHOS 76 U/L (32-92); ANION GAP 3 (8-16); BILIRUBIN,TOTAL 0.6 mg/dl (0.2-1.0); CALCIUM 9.1 mg/dl (8.4-10.2); CO2 27 mmol/L (22-28); CREATININE 0.9 mg/dl (0.6-1.3); GLUCOSE,RANDOM 137 mg/dl (74-106); SGOT/AST 21 U/L (10-42); SGPT/ALT 14 U/L (10-40); TOT PROT 6.8 g/dl (6.4-8.3)
[2016-12-08 14:18] LABS: PH,URINE 5.5 (4.5-8); URINE APPEARANCE Clear; URINE BILIRUBIN Negative (NEGATIVE); URINE BLOOD 3+ (NEGATIVE); URINE COLOR YELLOW; URINE GLUCOSE (UA) Negative (NEGATIVE); URINE KETONE Negative (NEGATIVE); URINE LEUK ESTERASE Negative (NEGATIVE); URINE NITRITE Negative (NEGATIVE); URINE PROTEIN Negative (NEGATIVE); URINE UROBILINOGEN 0.2 (0.2-1.0)
[2016-12-08 14:29] LABS: URINE BACTERIA MODERATE /hpf (NEGATIVE); URINE WBC 0-3 (3-5)
[2016-12-08 16:02] VITALS: TEMP 97.9
[2016-12-08 16:19] VITALS: BP 124/90; PULSE 78
--- NOTE | 2016-12-09 14:51 | EKG ---
Test Reason : Blood Pressure : / mmHG Vent. Rate : 091 BPM Atrial Rate : 091 BPM P-R Int : 160 ms QRS Dur : 076 ms QT Int : 340 ms P-R-T Axes : 044 057 047 degrees QTc Int : 418 ms NORMAL SINUS RHYTHM NORMAL ECG WHEN COMPARED WITH ECG OF 12-SEP-2016 14:59, NO SIGNIFICANT CHANGE WAS FOUND Confirmed by BHASKAR SIMPSON MD ([id number]) on 12/09/2016 2:51:30 PM Referred By: EDVIN Confirmed By:BHASKAR SIMPSON MD
== END 2016-12-08 16:20 | disposition short-term general hospital (02) ==
LOC: FER 12:00
DX: I20.8 Other forms of angina pectoris (principal); E11.9 Type 2 diabetes mellitus without complications; I10 Essential (primary) hypertension; E78.5 Hyperlipidemia, unspecified; Z95.5 Presence of coronary angioplasty implant and graft; I25.10 Atherosclerotic heart disease of native coronary artery without angina pectoris
CPT/HCPCS: 36415; 71020-TC; 80053; 81003; 81015; 84484; 85025; 93005; 99285-25

== ENCOUNTER 2017-03-15 09:22 | Emergency (ER) | payer OTHER, BC ==
[2017-03-15 09:55] VITALS: BP 147/95; PULSE 87; TEMP 98.4; BMI 29.7
--- NOTE | 2017-03-15 10:02 | PDOC ---
History of Present Illness - General Chief Complaint: Rash Stated Complaint: RASH Time Seen by Provider: 03/15/17 09:30 History Source: Patient Exam Limitations: No Limitations - History of Present Illness Initial Comments: 66 yo F history DM, HTN, HL, CAD presents with rash to LUE and L buttock for past 3 days. She states it started out with itching, then progressed to pain. Pain is 3/10, worse with palpation of the rash. No drainage. She noticed that she developed similar rash to her L buttock today. Denies fever. She also notes that she has had worsening soreness of the right shoulder, worse with overhead movements. 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 No numbness or weakness, no direct trauma. Past History - Past Medical History Allergies/Adverse Reactions: Allergies Allergy/AdvReac Type Severity Reaction Status Date / Time No Known Allergies Allergy Verified 03/15/17 09:23 Home Medications: Ambulatory Orders Aspirin [ASA -] 81 mg PO DAILY 05/13/13 Clopidogrel Bisulfate [Plavix -] 75 mg PO DAILY 05/13/13 Meclizine HCl [Antivert -] 25 mg PO PRN PRN 05/13/13 Metformin HCl [Glucophage -] 500 mg PO BID 05/13/13 Metoprolol Succinate [Toprol XL -] 100 mg PO DAILY 05/13/13 Omeprazole [Prilosec (RX)] 20 mg PO DAILY 03/13/15 Atorvastatin Ca [Lipitor] 40 mg PO HS 09/12/16 Valsartan 80 mg PO DAILY 12/08/16 Valacyclovir HCl [Valtrex -] 1,000 mg PO TID #21 tablet 03/15/17 Anemia: No Asthma: No Cancer: No Cardiac Disorders: Yes (CARDIAC STENT X1) CVA: No COPD: No CHF: No Dementia: No Diabetes: Yes GI Disorders: No Disorders: No HTN: Yes Hypercholesterolemia: Yes Liver Disease: No Seizures: No Thyroid Disease: No - Surgical History Abdominal Surgery: No Appendectomy: No Cardiac Surgery: Yes (STENTING) Cholecystectomy: Yes (2014) Lung Surgery: No Neurologic Surgery: No Orthopedic Surgery: Yes (r. knee arthroscopy) - Immunization History TDAP Vaccination: Yes Immunization Up to Date: Yes - Suicide/Smoking/Psychosocial Hx Smoking Status: No Smoking History: Never smoked Have you smoked in the past 12 months: No Number of Cigarettes Smoked Daily: 0 Information on smoking cessation initiated: No Hx Alcohol Use: Yes (SOCIAL) Drug/Substance Use Hx: No Substance Use Type: None Hx Substance Use Treatment: No Review of Systems - Review of Systems Able to Perform ROS?: Yes Comments:: GENERAL/CONSTITUTIONAL: No fever or chills. No weakness. HEAD, EYES, EARS, NOSE AND THROAT: No change in vision. No ear pain or discharge. No sore throat. CARDIOVASCULAR: No chest pain or shortness of breath. RESPIRATORY: No cough, wheezing, or hemoptysis. GASTROINTESTINAL: No nausea, vomiting, diarrhea or constipation. GENITOURINARY: No dysuria, frequency, or change in urination. MUSCULOSKELETAL: No joint or muscle swelling. No neck or back pain. +R shoulder pain. SKIN: +Rash NEUROLOGIC: No headache, vertigo, loss of consciousness, or change in strength/ sensation. ENDOCRINE: No increased thirst. No abnormal weight change. HEMATOLOGIC/LYMPHATIC: No anemia, easy bleeding, or history of blood clots. ALLERGIC/IMMUNOLOGIC: No hives or skin allergy. *Physical Exam - Vital Signs Last Vital Signs Temp Pulse Resp BP Pulse Ox 98.4 F 87 20 147/95 97 03/15/17 09:23 03/15/17 09:23 03/15/17 09:23 03/15/17 09:23 03/15/17 09:23 - Physical Exam Comments: GENERAL: Awake, alert, and fully oriented, in no acute distress HEAD: No signs of trauma EYES: PERRLA, EOMI, sclera anicteric, conjunctiva clear ENT: Auricles normal inspection, hearing grossly normal, nares patent, oropharynx clear without exudates. Moist mucosa NECK: Normal ROM, supple, no lymphadenopathy, JVD, or masses LUNGS: Breath sounds equal, clear to auscultation bilaterally. No wheezes, and no crackles HEART: Regular rate and rhythm, normal S1 and S2, no murmurs, rubs or gallops ABDOMEN: Soft, nontender, normoactive bowel sounds. No guarding, no rebound. No masses EXTREMITIES: Normal range of motion, no edema. No clubbing or cyanosis. No cords, erythema, or tenderness. Pain to R shoulder elicited on reaching behind her head. NEUROLOGICAL: Cranial nerves II through XII grossly intact. Normal speech, normal gait SKIN: Warm, Dry, normal turgor. +Erythematous papular rash to the LUE in a dermatomal distribution. +2 erythematous papules to the L buttock. Medical Decision Making - Medical Decision Making Shoulder symptoms suggest shoulder impingement, which is consistent with history of repetitive overhead lifting. Rash appears to be developing into vesicles, and the dermatomal distribution suggests shingles. No mucosal lesions, and rash does not cross midline. Will give valtrex, as she is under 72 hours. *DC/Admit/Observation/Transfer Diagnosis at time of Disposition: Shingles Qualifiers: Herpes zoster complications: without complications Qualified Code(s): B02.9 - Zoster without complications Shoulder impingement Qualifiers: Laterality: right Qualified Code(s): M75.41 - Impingement syndrome of right shoulder - Discharge Dispostion Disposition: HOME Condition at time of disposition: Stable Admit: No - Prescriptions Prescriptions: Valacyclovir HCl [Valtrex -] 1,000 mg PO TID #21 tablet - Referrals - Patient Instructions Printed Discharge Instructions: Shoulder Tendinopathy, DI for Shingles - Post Discharge Activity
== END 2017-03-15 10:16 | disposition home or self-care (01) ==
LOC: FER 09:22
DX: B02.9 Zoster without complications (principal); M75.41 Impingement syndrome of right shoulder; E11.9 Type 2 diabetes mellitus without complications; I10 Essential (primary) hypertension; E78.5 Hyperlipidemia, unspecified; I25.10 Atherosclerotic heart disease of native coronary artery without angina pectoris; Z79.84 Long term (current) use of oral hypoglycemic drugs
CPT/HCPCS: 99281-25

== ENCOUNTER 2018-04-25 11:46 | Emergency (ER) | payer OTHER ==
[2018-04-25 12:06] VITALS: BMI 26.2
--- NOTE | 2018-04-25 12:35 | PDOC ---
Attending Attestation - Resident Resident Name: Emiliano Starks - ED Attending Attestation I have performed the following: I have examined & evaluated the patient, The case was reviewed & discussed with the resident, I agree w/resident's findings & plan, Exceptions are as noted - HPI HPI: 04/25/18 12:32 67yo F hx HTN, CAD s/p stent x3 (last 12/2017), DM presents to the ED with cough x 4 days. Pt reports cough is productive of yellow sputum and is a/w sore throat, mild, global gradual onset headache, and nasal congestion. Denies fevers. Has tried robitussin with mild relief. Pt's daughter was just diagnosed with the flu and had similar symptoms prompting ED visit. DEnies cp, sob, weakness/dizziness, numbness, abd pain, n/v/d, urinary sxs. - Physicial Exam PE: 04/25/18 13:08 GENERAL: Awake, alert, and fully oriented, in no acute distress HEAD: No signs of trauma EYES: PERRLA, EOMI, sclera anicteric, conjunctiva clear ENT: Auricles normal inspection, hearing grossly normal, nares patent, oropharynx clear without exudates. Moist mucosa NECK: Normal ROM, supple, no lymphadenopathy, JVD, or masses LUNGS: Breath sounds equal, clear to auscultation bilaterally. No wheezes, and no crackles HEART: Regular rate and rhythm, normal S1 and S2, no murmurs, rubs or gallops ABDOMEN: Soft, nontender, normoactive bowel sounds. No guarding, no rebound. No masses EXTREMITIES: Normal range of motion, no edema. No clubbing or cyanosis. No cords, erythema, or tenderness NEUROLOGICAL: Normal speech, cranial nerves intact, equal strength and sensation b/l SKIN: Warm, Dry, normal turgor, no rashes or lesions noted. - Medical Decision Making 04/25/18 13:08 67yo F hx HTN, CAD, DM presents to the ED with URI sxs. Likely viral syndrome with bronchitis vs PNA. Plan to check flu swab, CXR, reassess. HR was mildly tachy, will recheck. 04/25/18 14:08 CXR clear Flu neg Rpt vitals initially with tachycardia and oral temp of 99.7 After tylenol, temp is down to 99, HR 93 Pt well appearing, non toxic, requests DC home Pt will f/u with Dr. Cee within 1-2 days I discussed the physical exam findings, ancillary test results and final diagnoses with the patient. I answered all of the patient's questions. The patient was satisfied with the care received and felt comfortable with the discharge plan and treatment plan. The patient will call their primary care physician within 24 hours to arrange follow-up and will return to the Emergency Department with any new, persistent or worsening symptoms.
--- NOTE | 2018-04-25 12:51 | PDOC ---
History of Present Illness - General Chief Complaint: Respiratory Stated Complaint: COUGH Time Seen by Provider: 04/25/18 11:48 History Source: Patient Exam Limitations: No Limitations - History of Present Illness Initial Comments: 04/25/18 12:44 67 yo female pmh of HTN, CAD (3 stents placed, most recent Dec 2017) and Diabetes presents to the ED for 4 days of cough. Pt states the cough started 2 weeks ago, resolved and then came back 4 days ago. Pt states it is productive of yellow sputum, admits to runny nose, denies F/C/N/V, GALAVIZ, ear pain, facial pain, body aches, hx of smoking/asthma/COPD/pneumonia/bronchitis. Pt admits to daughter recently testing positive for the flu and is concerned that she may have it as well. Past History - Past Medical History Allergies/Adverse Reactions: Allergies Allergy/AdvReac Type Severity Reaction Status Date / Time No Known Allergies Allergy Verified 04/25/18 11:50 Home Medications: Ambulatory Orders Aspirin [ASA -] 81 mg PO DAILY 05/13/13 Clopidogrel Bisulfate [Plavix -] 75 mg PO DAILY 05/13/13 Meclizine HCl [Antivert -] 25 mg PO PRN PRN 05/13/13 Metoprolol Succinate [Toprol XL -] 100 mg PO DAILY 05/13/13 metFORMIN HCL [Glucophage -] 500 mg PO BID 05/13/13 Atorvastatin Ca [Lipitor] 40 mg PO HS 09/12/16 Losartan Potassium 25 mg PO DAILY 04/25/18 Anemia: No Asthma: No Cancer: No Cardiac Disorders: Yes (CARDIAC STENT X3) CVA: No COPD: No CHF: No Dementia: No Diabetes: Yes GI Disorders: No Disorders: No HTN: Yes Hypercholesterolemia: Yes Liver Disease: No Seizures: No Thyroid Disease: No - Surgical History Abdominal Surgery: No Appendectomy: No Cardiac Surgery: Yes (STENTING) Cholecystectomy: Yes (2014) Lung Surgery: No Neurologic Surgery: No Orthopedic Surgery: Yes (r. knee arthroscopy) - Immunization History TDAP Vaccination: Yes Immunization Up to Date: Yes - Suicide/Smoking/Psychosocial Hx Smoking Status: No Smoking History: Never smoked Have you smoked in the past 12 months: No Number of Cigarettes Smoked Daily: 0 Information on smoking cessation initiated: No Hx Alcohol Use: No Drug/Substance Use Hx: No Substance Use Type: None Hx Substance Use Treatment: No Review of Systems - Review of Systems Constitutional: No: Chills, Fever HEENTM: Yes: Nose Congestion, Throat Pain. No: Ear Pain, Ear Discharge, Difficulty Swallowing Respiratory: Yes: Productive cough (yellow sputum). No: Shortness of Breath, Stridor, Wheezing Cardiac (ROS): No: Chest Pain ABD/GI: No: Constipated, Diarrhea, Nausea, Vomiting : No: Burning, Dysuria *Physical Exam - Vital Signs Last Vital Signs Temp Pulse Resp BP Pulse Ox 98.7 F 103 H 20 114/76 100 04/25/18 11:47 04/25/18 11:47 04/25/18 11:47 04/25/18 11:47 04/25/18 11:47 - Physical Exam General Appearance: Yes: Nourished, Appropriately Dressed. No: Apparent Distress HEENT: positive: EOMI, Hearing Grossly Normal. negative: Pharyngeal Erythema, Tonsillar Exudate, Rhinorrhea, TM Bulging, TM Erythema, Excessive drooling Respiratory/Chest: positive: Lungs Clear. negative: Respiratory Distress, Crackles, Stridor, Wheezing Cardiovascular: positive: Regular Rhythm, S1, S2, Tachycardia. negative: Edema , JVD, Murmur Vascular Pulses: Dorsalis-Pedis (R): 4+, Doralis-Pedis (L): 4+ Gastrointestinal/Abdominal: positive: Flat, Soft. negative: Pulsatile Mass, Distended, Guarding, Rebound, Tenderness Extremity: positive: Normal Capillary Refill Integumentary: positive: Normal Color, Dry, Warm Neurologic: positive: Fully Oriented, Alert, Normal Mood/Affect, Normal Response Moderate Sedation - Procedure Monitoring Vital Signs: Procedure Monitoring Vital Signs Temperature 98.7 F 04/25/18 11:47 Pulse Rate 103 H 04/25/18 11:47 Respiratory Rate 20 04/25/18 11:47 Blood Pressure 114/76 04/25/18 11:47 O2 Sat by Pulse Oximetry (%) 100 04/25/18 11:47 Medical Decision Making - Medical Decision Making 04/25/18 12:55 67 yo female presents to ED with productive cough, no SOB or difficulty breathing, no fevers. Daughter positive for flu Vitals show elevated HR 103 otherwise WNL CXR and influenza sent 04/25/18 14:02 pt continues to be tachy and temp in the 99s, tylenol ordered. Will reassess Flu negative Vitals reasses Pulse 93 Temp 99.0 Pt safe for DC home at this time with PCP follow up and increase fluid intake *DC/Admit/Observation/Transfer Diagnosis at time of Disposition: Cough - Discharge Dispostion Disposition: HOME Condition at time of disposition: Improved Decision to Admit order: No - Referrals - Patient Instructions Printed Discharge Instructions: DI for Acute Bronchitis Additional Instructions: Please see your Family Doctor within the next 48 hours. Take Tylenol for continued fevers and headaches. Increased fluid intake. Continue taking over the counter cough suppressants as needed. Return to the ER for high fevers not relieved by medication, difficulty breath, inability to eat or drink or profound lethargy. Thank you - Post Discharge Activity
[2018-04-25] MEDS ORDERED: ACETAMINOPHEN 325 MG TABLET (FP) PO ONE (13:22)
[2018-04-25] MEDS ORDERED: ACETAMINOPHEN 325 MG TABLET (FP) ONE (13:34)
[2018-04-25 14:07] VITALS: BP 148/82; PULSE 93; TEMP 99
== END 2018-04-25 14:44 | disposition home or self-care (01) ==
LOC: FER 11:46
DX: R05 Cough (principal); I10 Essential (primary) hypertension; E78.00 Pure hypercholesterolemia, unspecified; Z95.5 Presence of coronary angioplasty implant and graft; E11.9 Type 2 diabetes mellitus without complications
CPT/HCPCS: 71046-TC-FY; 87804; 99282-25

== ENCOUNTER 2018-09-14 08:13 | Emergency (ER) | payer OTHER, BC ==
[2018-09-14 08:19] VITALS: BMI 27.9
--- NOTE | 2018-09-14 08:27 | PDOC ---
History of Present Illness - General Chief Complaint: Lightheaded Stated Complaint: DIZZY Time Seen by Provider: 09/14/18 08:20 - History of Present Illness Initial Comments: 09/14/18 09:17 Chief complaint vertigo History of present illness: This is a 68-year-old woman with past medical history significant for chronic vertigo on meclizine at home hypertension diabetes high cholesterol coronary artery disease status post 2 stents who presents to the emergency department with three-day history of intermittent vertigo. Vertigo symptoms are similar to her previous episodes except they are lasting longer and are not relieved by her home meclizine. Symptoms are exacerbated when she lays down on her right hand side when she changes position looks to the right. There are alleviated when she looks straight ahead and remain still. No falls no fainting very mild intermittent headache over the last few days. No weakness no numbness. Symptoms are moderate to severe in severity intermittent with aforementioned exacerbating alleviating factors. Past History - Past Medical History Allergies/Adverse Reactions: Allergies Allergy/AdvReac Type Severity Reaction Status Date / Time No Known Allergies Allergy Verified 09/14/18 08:15 Home Medications: Ambulatory Orders Aspirin [ASA -] 81 mg PO DAILY 05/13/13 Clopidogrel Bisulfate [Plavix -] 75 mg PO DAILY 05/13/13 Meclizine HCl [Antivert -] 25 mg PO PRN PRN 05/13/13 Metoprolol Succinate [Toprol XL -] 100 mg PO DAILY 05/13/13 metFORMIN HCL [Glucophage -] 500 mg PO BID 05/13/13 Atorvastatin Ca [Lipitor] 40 mg PO HS 09/12/16 Losartan Potassium 25 mg PO DAILY 04/25/18 Dulaglutide [Trulicity] 0 mg SQ WEEKLY 09/14/18 Anemia: No Asthma: No Cancer: No Cardiac Disorders: Yes (CARDIAC STENT X3) CVA: No COPD: No CHF: No Dementia: No Diabetes: Yes GI Disorders: No Disorders: No HTN: Yes Hypercholesterolemia: Yes Liver Disease: No Seizures: No Thyroid Disease: No - Surgical History Abdominal Surgery: No Appendectomy: No Cardiac Surgery: Yes (STENTING) Cholecystectomy: Yes (2015) Lung Surgery: No Neurologic Surgery: No Orthopedic Surgery: Yes (r. knee arthroscopy) - Immunization History TDAP Vaccination: Yes Immunization Up to Date: Yes - Suicide/Smoking/Psychosocial Hx Smoking Status: No Smoking History: Never smoked Have you smoked in the past 12 months: No Number of Cigarettes Smoked Daily: 0 Hx Alcohol Use: Yes (ocasional) Drug/Substance Use Hx: No Substance Use Type: None Hx Substance Use Treatment: No Review of Systems - Review of Systems Comments:: 09/14/18 09:18 ROS: A complete review of 10 out of 10 review of systems is taken and is negative apart from what is previously mentioned below and in the HPI. *Physical Exam - Vital Signs Last Vital Signs Temp Pulse Resp BP Pulse Ox 98.6 F 89 17 150/90 100 09/14/18 08:14 09/14/18 08:14 09/14/18 08:14 09/14/18 08:14 09/14/18 08:14 - Physical Exam Comments: 09/14/18 09:18 Vitals: Triage Vital signs reviewed General Appearance: no acute distress, well nourished well developed, Head: Atraumatic, Eyes: Pupils equal reactive round, extraocular movement intact Neck: Supple;No Nucal rigidity Chest Wall: Nontender Cardiac: Regular rate and rhythym, no murmurs, no rubs, no gallops, Lungs: Clear to auscultation bilateral, good air movement bilaterally, Abdomen: Soft, non distended, normal bowel sounds, non tender to palpation Extremities: Full range of motion to all extremities, no cyanosis, clubbing, or edema Skin: Warm and dry, no rashes or lesions, no rash, no petechiae Neuro: AOX3; Cranial Nerves 2-12 grossly intact, Strength intact to all extremities, Sensation intact to all extremities,gait normal, reproducible vertiginous symptoms when turning patient's head to the right. Psych: normal mood, normal affect Heart Score/ECG Review - ECG Impressions Comment:: 09/14/18 09:24 EKG performed at 8:41 AM demonstrates normal sinus rhythm no ST elevations no T- wave inversions. Interpreted by me. ED Treatment Course - LABORATORY CBC & Chemistry Diagram: 09/14/18 08:48 09/14/18 08:48 Medical Decision Making - Medical Decision Making 09/14/18 09:21 History and examination consistent with vertigo exacerbation. Given more persistence of symptoms and patient's age and risk factors we'll obtain a CT head condition to labs and EKG We'll treat with IV fluids IV Ativan second dose meclizine observe and reassess 09/14/18 09:58 Patient feels better after medication. Able to ambulate with steady gait. Feels comfortable returning home. We'll have patient follow up with neurology in 1-2 days she will return to ED for any severe worsening symptoms or for any concerns. *DC/Admit/Observation/Transfer Diagnosis at time of Disposition: Vertigo - Discharge Dispostion Disposition: HOME Condition at time of disposition: Stable Decision to Admit order: No - Referrals Referrals: Jaylon Cee MD [Primary Care Provider] - Brenden Almanzar MD [Staff Physician] - - Patient Instructions Printed Discharge Instructions: Vertigo Additional Instructions: Drink plenty of fluids. Perform Tamiko maneuver 4-5 times a day. Take meclizine 4 -5 times a day. If no improvement in symptoms follow-up with neurology within 1- 2 days. Return to the emergency department for any severe worsening symptoms or for any concerns. - Post Discharge Activity
[2018-09-14] MEDS ORDERED: SODIUM CHLORIDE 0.9% 1000 ML INFUS.BAG IV ONE (08:28)
[2018-09-14] MEDS ORDERED: MECLIZINE HCL 25 MG TABLET (FP) PO ONE (08:30)
[2018-09-14] MEDS ORDERED: MECLIZINE HCL 25 MG TABLET (FP) ONE (08:39)
[2018-09-14] MEDS ORDERED: LORazepam 2 MG/ML SDV VIAL ONE (08:39)
[2018-09-14 09:05] LABS: BASO % 0.2 % (0-2.0); EOS % 2.2 % (0-4.5); HEMATOCRIT 40.2 % (32.4-45.2); HEMOGLOBIN 12.9 GM/dl (10.7-15.3); LYMPH % 37.5 % (8-40); MCH 27.9 pg (25.7-33.7); MEAN PLT VOLUME 8.8 fl (7.5-11.1); MONO % 6.9 % (3.8-10.2); NEUT % 53.2 % (42.8-82.8); PLATELET COUNT 208 K/MM3 (134-434); RBC 4.62 M/mm3 (3.60-5.2); WHITE BLOOD COUNT 4.9 K/mm3 (4.0-10.8)
[2018-09-14 09:27] LABS: ALBUMIN 3.7 g/dl (3.4-5.0); BILIRUBIN,TOTAL 0.4 mg/dl (0.2-1); CALCIUM 9.2 mg/dl (8.5-10); CREATININE 0.9 mg/dl (0.55-1.3); POTASSIUM 3.8 mmol/L (3.5-5.1); TOT PROT 6.9 g/dl (6.4-8.2)
[2018-09-14 09:45] VITALS: BP 131/80; PULSE 86; TEMP 98.8
--- NOTE | 2018-09-15 12:08 | EKG ---
Test Reason : Blood Pressure : / mmHG Vent. Rate : 086 BPM Atrial Rate : 086 BPM P-R Int : 174 ms QRS Dur : 080 ms QT Int : 340 ms P-R-T Axes : 037 054 047 degrees QTc Int : 406 ms NORMAL SINUS RHYTHM NORMAL ECG WHEN COMPARED WITH ECG OF 08-DEC-2016 12:00, NO SIGNIFICANT CHANGE WAS FOUND Confirmed by Len Gonzalez ([id number]) on 09/15/2018 12:08:36 PM Referred By: MD ALMANZA Confirmed By:Len Gonzalez
== END 2018-09-14 10:39 | disposition home or self-care (01) ==
LOC: FER 08:13
PROC: 3E033NZ Introduction of Analgesics, Hypnotics, Sedatives into Peripheral Vein, Percutaneous Approach (ICD-10-PCS; principal; 2018-09-14)
PROC: 3E0337Z Introduction of Electrolytic and Water Balance Substance into Peripheral Vein, Percutaneous Approach (ICD-10-PCS; 2018-09-14)
DX: R42 Dizziness and giddiness (principal); I10 Essential (primary) hypertension; E11.9 Type 2 diabetes mellitus without complications; E78.00 Pure hypercholesterolemia, unspecified; Z95.5 Presence of coronary angioplasty implant and graft; I25.10 Atherosclerotic heart disease of native coronary artery without angina pectoris
CPT/HCPCS: 36415; 70450-TC; 80053; 84484; 85025; 93005; 99284-25; J7030

== ENCOUNTER 2019-10-29 19:04 | Inpatient (IN) | payer OTHER, BC ==
[2019-10-29] MEDS ORDERED: ONDANSETRON 4 MG/2 ML VIAL IVPUSH ONE (19:33)
[2019-10-29] MEDS ORDERED: ACETAMINOPHEN 1000 MG/100 ML VIAL (NON FORMULARY) IVPB ONE (19:33)
[2019-10-29] MEDS ORDERED: ONDANSETRON 4 MG/2 ML VIAL ONE (19:34)
[2019-10-29] MEDS ORDERED: ACETAMINOPHEN INJECTION 100 ML IVPB ONE (19:55)
[2019-10-29 20:03] LABS: BASO % 0.2 % (0-2.0); EOS % 0.1 % (0-4.5); HEMOGLOBIN 13.8 GM/dl (10.7-15.3); LYMPH % 8.3 % (8-40); MCH 28.5 pg (25.7-33.7); MCHC 32.9 g/dl (32.0-36.0); MEAN CELL VOLUME 86.4 fl (80-96); MEAN PLT VOLUME 8.6 fl (7.5-11.1); NEUT % 89.4 % (42.8-82.8); PLATELET COUNT 231 K/MM3 (134-434); RBC 4.86 M/mm3 (3.60-5.2); RDW 13.7 % (11.6-15.6); WHITE BLOOD COUNT 11.3 K/mm3 (4.0-10.8)
[2019-10-29 20:27] LABS: BILIRUBIN,TOTAL 0.6 mg/dl (0.2-1); CALCIUM 9.5 mg/dl (8.5-10); CREATININE 1.1 mg/dl (0.55-1.3); POTASSIUM 4.1 mmol/L (3.5-5.1); TOT PROT 7.5 g/dl (6.4-8.2)
[2019-10-29] MEDS ORDERED: morphine CARPU-JECT 2 MG/1 ML DISP.SYRIN IVPUSH ONE (20:35)
[2019-10-29] MEDS ORDERED: morphine SULFATE 4 MG/ML VIAL ONE (20:43)
[2019-10-29 20:59] LABS: EPITHELIAL CELLS FEW /hpf
[2019-10-29] MEDS ORDERED: CEFTRIAXONE 1,000 MG in DEXTROSE 5%-WATER - 50 ML IVPB ONE (21:53)
[2019-10-29] MEDS ORDERED: cefTRIAXone SODIUM 1 GM VIAL ONE (21:55)
[2019-10-29] MEDS ORDERED: KETOROLAC TROMETHAMINE 30 MG/1 ML VIAL IVPUSH ONE (22:14)
[2019-10-29] MEDS ORDERED: KETOROLAC TROMETHAMINE 30 MG/1 ML VIAL ONE (22:15)
[2019-10-29 23:17] VITALS: BMI 27.8
--- NOTE | 2019-10-29 23:51 | HP ---
Admitting History and Physical - Primary Care Physician PCP: Jaylon Cee S - Admission Chief Complaint: Abdominal Pain History of Present Illness: This is a 69 y/o female with a significant past medical history of Chronic Vertigo (on Meclizine at home), Hypertension, Diabetes, Hypercholesterolemia, Coronary Artery Disease s/p 2 stents. Who presents to the ED with nausea and left lower quadrant pain. The patient states after eating pizza this afternoon she had a gradual onset of left lower quadrant abdominal pain with associated nausea and the feeling to vomit. The patient states the pain is steady and radiates to her left flank, going to her back. She notes having pain like this in the past but not this severe and normally self resolves. The patient took pepto bismol thinking it could just be the pizza she ate but her symptoms persisted prompting her to come into the ED. The patient notes a kidney stone and kidney infection years ago but has had nothing recent. The patient currently has a UTI which she has been taking medication for for the past 2 days (diagnosed because she had visible blood in her urine). The patient denies fever/chills, cough, diarrhea, or chest pain. History Source: Patient Limitations to Obtaining History: No Limitations - Past Medical History POT ROOM TAPPER: Yes: Vertigo Cardiovascular: Yes: CAD, HTN, Hyperlipdemia Reproductive: Yes: Postmenopausal ...LMP Comment: 69 FEMALE ...: No Endocrine: Yes: Diabetes Mellitus - Past Surgical History Past Surgical History: Yes: Stent - Advance Directives Advance Directives: Yes: Health Care Proxy - Smoking History Smoking history: Never smoked Have you smoked in the past 12 months: No Aproximately how many cigarettes per day: 0 - Alcohol/Substance Use Hx Alcohol Use: Yes (ocasional) History of Substance Use: reports: None - Social History Usual Living Arrangement: Yes: With Spouse ADL: Independent Occupation: Retired- [employer] History of Recent Travel: No Home Medications - Allergies Allergies/Adverse Reactions: Allergies Allergy/AdvReac Type Severity Reaction Status Date / Time No Known Allergies Allergy Verified 10/29/19 19:13 - Home Medications Home Medications: Ambulatory Orders Aspirin [ASA -] 81 mg PO DAILY 05/13/13 Clopidogrel Bisulfate [Plavix -] 75 mg PO DAILY 05/13/13 Meclizine HCl [Antivert -] 25 mg PO PRN PRN 05/13/13 Metoprolol Succinate [Toprol XL -] 100 mg PO DAILY 05/13/13 metFORMIN HCL [Glucophage -] 500 mg PO BID 05/13/13 Atorvastatin Ca [Lipitor] 80 mg PO HS 09/12/16 Losartan Potassium 25 mg PO DAILY 04/25/18 Dulaglutide [Trulicity] 0 mg SQ WEEKLY 09/14/18 Cephalexin [Keflex] 500 mg PO BID 10/29/19 Family Medical History Family History: As Documented Family Hx Cancer: Father (Colon) Family Hx Coronary Artery Disease: Mother Review of Systems - Review of Systems Constitutional: reports: Loss of Appetite Eyes: reports: No Symptoms HENT: reports: No Symptoms Neck: reports: No Symptoms Cardiovascular: reports: No Symptoms Respiratory: reports: No Symptoms Gastrointestinal: reports: Abdominal Pain, Nausea, Vomiting Genitourinary: reports: Flank Pain, Hematuria Breasts: reports: No Symptoms Reported Musculoskeletal: reports: No Symptoms Integumentary: reports: No Symptoms Neurological: reports: No Symptoms Endocrine: reports: No Symptoms Hematology/Lymphatic: reports: No Symptoms Psychiatric: reports: No Symptoms Pain Intensity: 6 Physical Examination Vital Signs: Vital Signs Temperature 98.6 F 10/29/19 23:03 Pulse Rate 115 H 10/29/19 23:03 Respiratory Rate 18 10/29/19 23:03 Blood Pressure 143/80 10/29/19 23:03 O2 Sat by Pulse Oximetry (%) 98 10/29/19 23:03 Constitutional: Yes: Mild Distress Eyes: Yes: WNL, Conjunctiva Clear, EOM Intact, PERRL HENT: Yes: WNL, Atraumatic, Normocephalic Neck: Yes: WNL, Supple, Trachea Midline Cardiovascular: Yes: Tachycardia, S1, S2 Respiratory: Yes: WNL, Regular, CTA Bilaterally Gastrointestinal: Yes: Soft, Hypoactive Bowel Sounds, Tenderness (LLQ) ...Rectal Exam: Yes: Deferred Renal/: Yes: CVA Tenderness - Left Breast(s): Yes: WNL Musculoskeletal: Yes: WNL Extremities: Yes: WNL Edema: No Peripheral Pulses WNL: Yes Integumentary: Yes: WNL Neurological: Yes: WNL, Alert, Oriented, Cran Nerves II-XII Intact ...Motor Strength: WNL Psychiatric: Yes: WNL, Alert, Oriented Labs: CBC, BMP 10/29/19 19:59 10/29/19 19:29 Laboratory Results - last 24 hr 10/29/19 10/29/19 10/29/19 19:29 19:29 19:59 WBC 11.3 H RBC 4.86 Hgb 13.8 Hct 42.0 MCV 86.4 MCH 28.5 MCHC 32.9 RDW 13.7 Plt Count 231 MPV 8.6 Absolute Neuts (auto) 10.2 Neutrophils % 89.4 H Lymphocytes % 8.3 Monocytes % 2.0 L Eosinophils % 0.1 Basophils % 0.2 Sodium 138 Potassium 4.1 Chloride 105 Carbon Dioxide 20 L Anion Gap 13 BUN 15.0 Creatinine 1.1 Est GFR (CKD-EPI)AfAm 58.50 Est GFR (CKD-EPI)NonAf 50.47 Random Glucose 180 H Calcium 9.5 Total Bilirubin 0.6 AST 28 ALT 21 Alkaline Phosphatase 102 Creatine Kinase 470 H Creatine Kinase Index 0.3 CK-MB (CK-2) 1.6 Troponin I < 0.03 Total Protein 7.5 Albumin 4.0 Urine Color Urine Appearance Urine pH Urine Protein Urine Glucose (UA) Urine Ketones Urine Blood Urine Nitrite Urine Bilirubin Urine Urobilinogen Ur Leukocyte Esterase Urine RBC Urine WBC Ur Transition Epith Cell Urine Bacteria 10/29/19 20:33 WBC RBC Hgb Hct MCV MCH MCHC RDW Plt Count MPV Absolute Neuts (auto) Neutrophils % Lymphocytes % Monocytes % Eosinophils % Basophils % Sodium Potassium Chloride Carbon Dioxide Anion Gap BUN Creatinine Est GFR (CKD-EPI)AfAm Est GFR (CKD-EPI)NonAf Random Glucose Calcium Total Bilirubin AST ALT Alkaline Phosphatase Creatine Kinase Creatine Kinase Index CK-MB (CK-2) Troponin I Total Protein Albumin Urine Color Yellow Urine Appearance Clear Urine pH 5.0 Urine Protein Negative Urine Glucose (UA) Trace Urine Ketones Trace Urine Blood 3+ H Urine Nitrite Negative Urine Bilirubin Negative Urine Urobilinogen 0.2 Ur Leukocyte Esterase Negative Urine RBC 10-20 Urine WBC 0-2 Ur Transition Epith Cell Few Urine Bacteria Rare Intake & Output 10/27/19 10/28/19 10/29/19 10/30/19 23:59 23:59 23:59 23:59 Intake Total 1400 375 Output Total 75 Balance 1325 375 Weight 64.592 kg Current Medications Generic Name Dose Route Start Last Admin Trade Name Freq PRN Reason Stop Dose Admin Acetaminophen 1,000 mg 10/30/19 02:00 Ofirmev Injection - IVPB 10/31/19 01:59 Q6H PRN PAIN LEVEL 4 - 6 Sodium Chloride 1,000 mls @ 75 mls/hr 10/30/19 01:15 10/30/19 01:39 Normal Saline - IV 75 mls/hr ASDIR MEKA Administration Ceftriaxone Sodium 1 gm/ 50 mls @ 100 mls/hr 10/30/19 10:00 Dextrose IVPB DAILY MEKA Protocol Morphine Sulfate 2 mg 10/30/19 01:14 10/30/19 01:39 Morphine Sulfate IVPUSH 2 mg Q4H PRN Administration PAIN LEVEL 7 - 10 Imaging - Results Chest X-ray: Image Reviewed Cat Scan: Report Reviewed, Image Reviewed EKG: Image Reviewed Problem List - Problems (1) Complicated UTI (urinary tract infection) Assessment/Plan: Likely secondary to Failed Outpatient Therapy hx E- Coli UA- +3 blood, trace glucose, trace ketones, 10-20RBCs, 0-2WBC Urne Culture-pending Spiral CT- moderate left hydronephrosis with associated perirenal soft tissue stranding + Leukocytosis with neutrophilia Ceftriaxone given in ED, will continue Appreciate ID consult Monitor CBC Monitor vitals Ofirmev, Morphine prn Code(s): N39.0 - URINARY TRACT INFECTION, SITE NOT SPECIFIED (2) Hydronephrosis Assessment/Plan: CTAP- Renal stone protocol CT performedinterpreted by Dr. Guerra of the rad iologist: Moderate left hydronephrosis with associated perirenal soft tissue stranding. There also was dilatation of the proximal third of the left ureter. No definite radiopaque urinary tract stones seen. No evidence of urinary tract mass lesion seen. Because of hydronephrosis without mass or stone being seen, additional imaging such as contrast enhanced CT/CT urography suggested. Appreciate Urology consult- defer to PMD Monitor CBC, CMP Monitor vitals IVF Code(s): N13.30 - UNSPECIFIED HYDRONEPHROSIS (3) Hematuria Assessment/Plan: Likely secondary to UTI UA- +3 blood Appreciate Urology consult Monitor CBC Monitor vitals Code(s): R31.9 - HEMATURIA, UNSPECIFIED (4) CAD (coronary artery disease) Assessment/Plan: s/p Stents EKG reviewed Continue home meds with parameters Code(s): I25.10 - ATHSCL HEART DISEASE OF [place] CORONARY ARTERY W/O ANG PCTRS (5) Diabetes mellitus Assessment/Plan: stable BGMs Hold Metformin for now- NPO ISS, when diet resumed Monitor CMP Code(s): E11.9 - TYPE 2 DIABETES MELLITUS WITHOUT COMPLICATIONS (6) HTN (hypertension) Assessment/Plan: stable Monitor BP Continue home meds with parameters Monitor renal function Code(s): I10 - ESSENTIAL (PRIMARY) HYPERTENSION (7) HLD (hyperlipidemia) Assessment/Plan: stable Continue Lipitor Monitor LFTs Code(s): E78.5 - HYPERLIPIDEMIA, UNSPECIFIED (8) Vertigo Assessment/Plan: stable No acute flare Continue Meclizine prn Code(s): R42 - DIZZINESS AND GIDDINESS (9) Encounter for screening laboratory testing for COVID-19 virus Assessment/Plan: Low Risk COVID PCR- pending Isolation Precautions Code(s): Z11.59 - ENCOUNTER FOR SCREENING FOR OTHER VIRAL DISEASES Assessment/Plan This is a 69 y/o female with a significant past medical history of Chronic Vertigo (on Meclizine at home), Hypertension, Diabetes, Hypercholesterolemia, Coronary Artery Disease s/p 2 stents. Admitted to M/S for Complicated UTI, Hydronephrosis for further evaluation of their emergent condition. Plan: See Problem List FEN NS@75ml/hr Replete lytes prn NPO DVT ppx OOB SCDs Hold AC secondary to hematuria Dispo: Requires Inpatient Care Visit type - Medication Review Med list reviewed for High Risk Meds patients 65 and older: Yes - Emergency Visit Emergency Visit: Yes ED Registration Date: 10/29/19 Care time: The patient presented to the Emergency Department on the above date and was hospitalized for further evaluation of their emergent condition. - New Patient This patient is new to me today: Yes Date on this admission: 10/29/19 - Critical Care Critical Care patient: No
[2019-10-30] MEDS: SODIUM CHLORIDE 1,000 ML IV SCH (01:39)
[2019-10-30] MEDS: MORPHINE SULFATE 2 MG/ML VIAL IVPUSH PRN (01:39)
[2019-10-30] MEDS ORDERED: ACETAMINOPHEN 1000 MG/100 ML VIAL (NON FORMULARY) IVPB PRN (02:00)
--- NOTE | 2019-10-30 03:54 | PDOC ---
Documentation entered by Ac Hernández SCRIBE, acting as scribe for Marjorie Avery MD. Marjorie Avery MD: This documentation has been prepared by the Edgar echols Angel, SCRIBE, under my direction and personally reviewed by me in its entirety. I confirm that the documentation accurately reflects all work, treatment, procedures, and medical decision making performed by me. History of Present Illness - General Chief Complaint: Nausea Stated Complaint: NAUSEA & DIZZINESS History Source: Patient Exam Limitations: No Limitations - History of Present Illness Initial Comments: 10/29/19 19:37 The patient is a 69 year old female with a significant past medical history of chronic vertigo (on meclizine at home), hypertension, diabetes, high cholesterol, coronary artery disease status post 2 stents who presents to the ED with nausea and left lower quadrant pain. The patient states after eating pizza this afternoon she had a gradual onset of left lower quadrant abdominal pain with associated nausea and the feeling to vomit. The patient states the pain is steady and radiates to her left flank, going to her back. She notes having pain like this in the past but not this severe and normally self resolves. The patient took pepto bismol thinking it could just be the pizza she ate but her symptoms persisted prompting her to come into the ED. The patient notes a kidney stone and kidney infection years ago but has had nothing recent. The patient currently has a UTI which she has been taking medication for for the past 2 days (diagnosed because she had visible blood in her urine). The patient denies fever/chills, cough, diarrhea, or chest pain. Past History - Medical History Allergies/Adverse Reactions: Allergies Allergy/AdvReac Type Severity Reaction Status Date / Time No Known Allergies Allergy Verified 10/29/19 19:13 Home Medications: Ambulatory Orders Aspirin [ASA -] 81 mg PO DAILY 05/13/13 Clopidogrel Bisulfate [Plavix -] 75 mg PO DAILY 05/13/13 Meclizine HCl [Antivert -] 25 mg PO PRN PRN 05/13/13 Metoprolol Succinate [Toprol XL -] 100 mg PO DAILY 05/13/13 metFORMIN HCL [Glucophage -] 500 mg PO BID 05/13/13 Atorvastatin Ca [Lipitor] 80 mg PO HS 07/06/17 Losartan Potassium 25 mg PO DAILY 04/25/18 Dulaglutide [Trulicity] 0 mg SQ WEEKLY 09/14/18 Cephalexin [Keflex] 500 mg PO BID 10/29/19 Anemia: No Asthma: No Cancer: No Cardiac Disorders: Yes (CARDIAC STENT X3) CVA: No COPD: No CHF: No Dementia: No Diabetes: Yes GI Disorders: No Disorders: No HTN: Yes Hypercholesterolemia: Yes Liver Disease: No Seizures: No Thyroid Disease: No - Surgical History Abdominal Surgery: No Appendectomy: No Cardiac Surgery: Yes (STENTING) Cholecystectomy: Yes (2015) Lung Surgery: No Neurologic Surgery: No Orthopedic Surgery: Yes (r. knee arthroscopy) - Immunization History TDAP Vaccination: Yes Immunization Up to Date: Yes - Psycho-Social/Smoking History Smoking Status: No Smoking History: Never smoked Have you smoked in the past 12 months: No Number of Cigarettes Smoked Daily: 0 Review of Systems - Review of Systems Able to Perform ROS?: Yes Comments:: 10/29/19 19:40 GENERAL/CONSTITUTIONAL: No fever or chills. No weakness. HEAD, EYES, EARS, NOSE AND THROAT: No change in vision. No ear pain or discharge. No sore throat. CARDIOVASCULAR: No chest pain or shortness of breath. RESPIRATORY: No cough, wheezing, or hemoptysis. GASTROINTESTINAL: +Nausea, Left lower quadrant abdominal pain. No vomiting, diarrhea or constipation. GENITOURINARY: No dysuria, frequency, or change in urination. MUSCULOSKELETAL: No joint or muscle swelling or pain. No neck or back pain. SKIN: No rash NEUROLOGIC: No headache, vertigo, loss of consciousness, or change in strength/sensation. ENDOCRINE: No increased thirst. No abnormal weight change. HEMATOLOGIC/LYMPHATIC: No anemia, easy bleeding, or history of blood clots. ALLERGIC/IMMUNOLOGIC: No hives or skin allergy. *Physical Exam - Physical Exam 10/29/19 19:43 GENERAL: Awake, alert, and fully oriented, in no acute distress HEAD: No signs of trauma EYES: PERRLA, EOMI, sclera anicteric, conjunctiva clear ENT: Auricles normal inspection, hearing grossly normal, nares patent, oropharynx clear without exudates. Moist mucosa NECK: Normal ROM, supple, no lymphadenopathy, JVD, or masses LUNGS: Breath sounds equal, clear to auscultation bilaterally. No wheezes, and no crackles HEART: +Mildly Tachycardic. no murmurs, rubs or gallops BACK: +Mild CVA/left flank tenderness ABDOMEN: +Moderate lower left quadrant tenderness. Soft, normoactive bowel sounds. No guarding, no rebound. No masses EXTREMITIES: Normal range of motion, no edema. No clubbing or cyanosis. No cords, erythema, or tenderness NEUROLOGICAL: Cranial nerves II through XII grossly intact. Normal speech, no rmal gait SKIN: Warm, Dry, normal turgor, no rashes or lesions noted. Twelve-lead electrocardiogram is performed: interpreted by Yeniinus tachycardia 116bpm; no acute ST or T wave abnormalities. No evidence of acute cardiac arrhythmia Portable chest x-ray performed: Interpreted by [facility] no masses or effusion; normal cardiac silhouette; large gastric air bubble ED Treatment Course - LABORATORY CBC & Chemistry Diagram: 10/29/19 19:59 10/29/19 19:29 Medical Decision Making - Medical Decision Making 10/29/19 21:55 CBC notable for white blood cell count 11,800 with predominance of neutrophils; Urinalysis shows 10-20 RBCs/0-2 WBCs/rare bacteria Renal stone protocol CT performedinterpreted by Dr. Guerra of the radiologist: Moderate left hydronephrosis with associated perirenal soft tissue stranding. There also was dilatation of the proximal third of the left ureter. No definite radiopaque urinary tract stones seen. No evidence of urinary tract mass lesion seen. Because of hydronephrosis without mass or stone being seen, additional imaging such as contrast enhanced CT/CT urography suggested. Results discussed with the patient and her daughter. Although she feels somewhat better from standpoint of nausea and pain, the patient required par enteral analgesics (1 g acetaminophen IV followed by 2 mg of morphine IV) to become comfortable. Since the etiology of her hydronephrosis is still unclear, because she is diabetic with likely upper tract UTI, and hospital admission for parenteral antibiotics/fluids/analgesia warranted Rocephin 1 g IVPB given Case discussed with WILLARD Alexis of [facility] service: Patient will be admitted to Dr. Fitzpatrick's service overnight. Patient will be followed by Drs. Cee/Fred after that. Discharge - Discharge Information Problems reviewed: Yes Clinical Impression/Diagnosis: Complicated UTI (urinary tract infection) Condition: Guarded - Admission Yes - Follow up/Referral - Patient Discharge Instructions - Post Discharge Activity
[2019-10-30] MEDS ORDERED: MECLIZINE HCL 25 MG TABLET (FP) PO PRN (07:32)
[2019-10-30] MEDS ORDERED: DEXTROSE 5%-WATER - 50 ML IVPB ONE (08:22)
[2019-10-30] MEDS ORDERED: cefTRIAXone SODIUM 1 GM VIAL ONE (08:22)
[2019-10-30 08:30] LABS: BASO % 0.1 % (0-2.0); EOS % 0.2 % (0-4.5); HEMATOCRIT 38.3 % (32.4-45.2); HEMOGLOBIN 12.4 GM/dl (10.7-15.3); LYMPH % 22.2 % (8-40); MCH 28.1 pg (25.7-33.7); MCHC 32.3 g/dl (32.0-36.0); MEAN CELL VOLUME 87.1 fl (80-96); MEAN PLT VOLUME 9.3 fl (7.5-11.1); MONO % 6.1 % (3.8-10.2); NEUT % 71.4 % (42.8-82.8); PLATELET COUNT 215 K/MM3 (134-434); RDW 13.3 % (11.6-15.6); WHITE BLOOD COUNT 10.1 K/mm3 (4.0-10.8)
[2019-10-30 08:34] LABS: ALBUMIN 3.5 g/dl (3.4-5.0); BILIRUBIN,TOTAL 0.6 mg/dl (0.2-1); CREATININE 1.3 mg/dl (0.55-1.3); TOT PROT 6.6 g/dl (6.4-8.2)
--- NOTE | 2019-10-30 08:52 | PN ---
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 plavix until appt on Friday developed LLQ abdominal pain- sharp last night hematuria has resolved no fevr no chills no cough came to ED Left hydronephrosis on CT scan imp/reccd left hydro-?passed stone ?UTI -partially treated cultures sent continue ceftriaxone still tachycardic urology evaluation f/u cultures CAD-reports plavix on hold per outpt [employer] fire chief-plans per hospitalist tachycardia-gentle hydration, reports pain has resolved Problem List - Problems (1) Hydronephrosis Code(s): N13.30 - UNSPECIFIED HYDRONEPHROSIS (2) Complicated UTI (urinary tract infection) Code(s): N39.0 - URINARY TRACT INFECTION, SITE NOT SPECIFIED (3) CAD (coronary artery disease) Code(s): I25.10 - ATHSCL HEART DISEASE OF [place] CORONARY ARTERY W/O ANG PCTRS
[2019-10-30] MEDS: ASPIRIN 81 MG CHEWABLE TABLETS PO SCH ×2 (09:25→13:02)
[2019-10-30] MEDS: LOSARTAN POTASSIUM 25 MG TABLET PO SCH (09:25)
[2019-10-30] MEDS: CEFTRIAXONE 1 GM in DEXTROSE 5%-WATER - 50 ML IVPB SCH (09:26)
[2019-10-30] MEDS ORDERED: CLOPIDOGREL BISULFATE 75 MG TABLET (FP) PO SCH (10:00)
--- NOTE | 2019-10-30 10:07 | CONS ---
DATE OF CONSULTATION: DATE OF DICTATION: 10/30/2019 HISTORY OF PRESENT ILLNESS: This is a 69-year-old woman, past medical history of diabetes, hypertension, coronary artery disease. She has [address] Earlier during the week she developed gross hematuria. She noted blood in her urine. She had no fevers or chills. She went to the urgent care center on Friday at [facility]. She was told she had a probable UTI, was prescribed Keflex which she started taking. She called her bread supervisor at [facility] (she had recently had a stress test 2 weeks ago) who advised that she hold her Plavix until she was seen in their office next Friday, and so she has not been taking her Plavix since Friday, and her hematuria that she could visualize resolved. Friday she developed acute left lower quadrant pain radiating to her groin. She had no fevers or chills. She had some nausea, and she vomited at home. The pain radiated from her flank down to her groin, and she presented to the ER. Many years ago she has had nephrolithiasis and UTI, but nothing recently. She denies fevers, chills. She has no cough. She has no diarrhea, and she has no chest pain. She currently reports her left lower quadrant pain is completely resolved. ALLERGIES: She has no known drug allergies. MEDICATIONS: Her medications include aspirin; Plavix, which is currently on hold; Antivert; Toprol-XL; Glucophage; Lipitor; losartan; Trulicity; and Keflex. PAST MEDICAL HISTORY: Notable for coronary artery disease. She has several stented in place, the last in 2018. She has a history of diabetes, hypertension, hypercholesterolemia. PAST SURGICAL HISTORY: Notable for cholecystectomy in 2015, right knee arthroscopy, and the stent. SOCIAL HISTORY: She is . There is no history of cigarette, alcohol, or substance use. She has no sick contacts. There has been no travel. They have no pets. REVIEW OF SYSTEMS: Currently she feels well, and all her pain has resolved. In the ER she received a dose of Tylenol and a dose of Zofran and Toradol as well as morphine. PHYSICAL EXAMINATION: General: She is a pleasant woman, awake and alert. Vital Signs: Her temperature is 98.6, pulse of 105. Blood pressure is 117/70, respiratory rate 16. She is saturating 99% on room air. She weighs 64 kg. HEENT: She is normocephalic. Her eyes are anicteric. Neck: Supple. Lungs: Clear to auscultation. Heart: Regular rate and rhythm. Abdomen: Soft. She has no left lower quadrant, she has no left CVA pain or suprapubic pain. Extremities: Without edema. LABORATORY: White count was 11.3 on admission, repeat of 10.1 this morning. Hemoglobin 12.4. Platelets are 218. BUN and creatinine are 14 and 1.3. Glucose of 100 with normal LFTs. CPK was 470 on admission with normal troponin. Urinalysis shows 10-20 red cells, 3+ blood, with 0-2 white cells. COVID serology is pending. Blood and urine cultures are pending. IMAGING: She had a chest x-ray in the emergency room that showed no acute pathology. She had a CAT scan of her abdomen and pelvis that showed moderate left hydronephrosis with associated perirenal soft tissue stranding. There was also dilatation of the proximal third of the left ureter on this imaging. SUMMARY: 1. This is a 69-year-old woman with left lower quadrant pain consistent with the left hydronephrosis noted on CAT scan, possibly a passed stone. She may have a partially treat urinary tract infection as well. Cultures have been sent. Would continue ceftriaxone. Would consider urology evaluation and follow up her cultures. 2. Coronary artery disease, reports Plavix on hold per her outpatient bread supervisor. 3. Tachycardia. Would continue gentle hydration. Reports her pain has resolved. Further recommendations to follow based on her cultures. Please call if needed. JAQUELINE GALLOWAY M.D. [id number] TIESHA
[2019-10-30] MEDS ORDERED: ACETAMINOPHEN 325 MG TABLET (FP) PO PRN (13:39)
--- NOTE | 2019-10-30 13:39 | PN ---
Progress Note, Physician Chief Complaint: AWAKE ALERT EVENTS AND NOTES REVIEWED PATIENT IS COMFORTABLE AND DENIES PAIN AT THIS TIME - Current Medication List Current Medications: Active Medications Acetaminophen (Ofirmev Injection -) 1,000 mg IVPB Q6H PRN PRN Reason: PAIN LEVEL 4 - 6 Stop: 10/31/19 01:59 Aspirin (Asa -) 81 mg PO DAILY [facility] Last Admin: 10/30/19 13:02 Dose: Not Given Documented by: Atorvastatin Calcium (Lipitor -) 80 mg PO [facility] Clopidogrel Bisulfate (Plavix -) 75 mg PO DAILY [facility] Last Admin: 10/30/19 13:02 Dose: Not Given Documented by: Sodium Chloride (Normal Saline -) 1,000 mls @ 75 mls/hr IV ASDIR [facility] Last Admin: 10/30/19 01:39 Dose: 75 mls/hr Documented by: Ceftriaxone Sodium 1 gm/ (Dextrose) 50 mls @ 100 mls/hr IVPB DAILY [facility]; Protocol Last Admin: 10/30/19 09:26 Dose: 100 mls/hr Documented by: Losartan Potassium (Cozaar -) 25 mg PO DAILY [facility] Last Admin: 10/30/19 09:25 Dose: 25 mg Documented by: Meclizine HCl (Antivert -) 25 mg PO Q6H PRN PRN Reason: VERTIGO Metoprolol Succinate (Toprol Xl -) 100 mg PO DAILY [facility] Last Admin: 10/30/19 09:27 Dose: 100 mg Documented by: Morphine Sulfate (Morphine Sulfate) 2 mg IVPUSH Q4H PRN PRN Reason: PAIN LEVEL 7 - 10 Last Admin: 10/30/19 01:39 Dose: 2 mg Documented by: - Objective Vital Signs: Vital Signs Temperature 98.4 F 10/30/19 09:29 Pulse Rate 102 H 10/30/19 09:29 Respiratory Rate 18 10/30/19 09:29 Blood Pressure 115/74 10/30/19 09:29 O2 Sat by Pulse Oximetry (%) 100 10/30/19 09:29 Constitutional: Yes: No Distress Cardiovascular: Yes: Regular Rate and Rhythm Respiratory: Yes: WNL Gastrointestinal: Yes: WNL Genitourinary: Yes: WNL Musculoskeletal: Yes: WNL Extremities: Yes: WNL Edema: No Integumentary: Yes: WNL Wound/Incision: Yes: Clean/Dry Neurological: Yes: WNL ...Motor Strength: WNL Psychiatric: Yes: WNL Labs: CBC, BMP 10/30/19 07:20 10/30/19 07:20 Problem List - Problems (1) CAD (coronary artery disease) Code(s): I25.10 - ATHSCL HEART DISEASE OF [place] CORONARY ARTERY W/O ANG PCTRS (2) Complicated UTI (urinary tract infection) Code(s): N39.0 - URINARY TRACT INFECTION, SITE NOT SPECIFIED (3) Diabetes mellitus Code(s): E11.9 - TYPE 2 DIABETES MELLITUS WITHOUT COMPLICATIONS (4) Encounter for screening laboratory testing for COVID-19 virus Code(s): Z11.59 - ENCOUNTER FOR SCREENING FOR OTHER VIRAL DISEASES (5) HLD (hyperlipidemia) Code(s): E78.5 - HYPERLIPIDEMIA, UNSPECIFIED (6) HTN (hypertension) Code(s): I10 - ESSENTIAL (PRIMARY) HYPERTENSION (7) Hydronephrosis Code(s): N13.30 - UNSPECIFIED HYDRONEPHROSIS Assessment/Plan IV FLUIDS AND CLEAR DIET IV ABX PER ID AWAIT CULTURES AND SENS. EVRACHEL OOB TO CHAIR DVT PROPHYLAXIS
[2019-10-30] MEDS: ATORVASTATIN CA 40 MG TABLET (FP) PO SCH (21:27)
[2019-10-31] MEDS: SODIUM CHLORIDE 1,000 ML IV SCH (01:00)
[2019-10-31] MEDS ORDERED: cefTRIAXone SODIUM 1 GM VIAL ONE ×2 (09:09→09:10)
[2019-10-31] MEDS ORDERED: DEXTROSE 5%-WATER - 50 ML IVPB ONE ×2 (09:09→09:10)
[2019-10-31] MEDS: CEFTRIAXONE 1 GM in DEXTROSE 5%-WATER - 50 ML IVPB SCH (10:37)
[2019-10-31] MEDS: LOSARTAN POTASSIUM 25 MG TABLET PO SCH (10:37)
--- NOTE | 2019-10-31 12:29 | PN ---
Progress Note, Physician Chief Complaint: AWAITING WORKUP NO FEVER OR CHILLS POSITIVE APPETITE - Current Medication List Current Medications: Active Medications Acetaminophen (Tylenol -) 650 mg PO Q6H PRN PRN Reason: PAIN LEVEL 1-5 Last Admin: 10/30/19 19:07 Dose: 650 mg Documented by: Aspirin (Asa -) 81 mg PO DAILY [facility] Last Admin: 10/30/19 13:02 Dose: Not Given Documented by: Atorvastatin Calcium (Lipitor -) 80 mg PO HS [facility] Last Admin: 10/30/19 21:27 Dose: 80 mg Documented by: Clopidogrel Bisulfate (Plavix -) 75 mg PO DAILY [facility] Last Admin: 10/30/19 13:02 Dose: Not Given Documented by: Sodium Chloride (Normal Saline -) 1,000 mls @ 75 mls/hr IV ASDIR [facility] Last Admin: 10/31/19 01:00 Dose: 75 mls/hr Documented by: Ceftriaxone Sodium 1 gm/ (Dextrose) 50 mls @ 100 mls/hr IVPB DAILY [facility]; Protocol Last Admin: 10/31/19 10:37 Dose: 100 mls/hr Documented by: Losartan Potassium (Cozaar -) 25 mg PO DAILY [facility] Last Admin: 10/31/19 10:37 Dose: 25 mg Documented by: Meclizine HCl (Antivert -) 25 mg PO Q6H PRN PRN Reason: VERTIGO Metoprolol Succinate (Toprol Xl -) 100 mg PO DAILY [facility] Last Admin: 10/31/19 10:37 Dose: 100 mg Documented by: Morphine Sulfate (Morphine Sulfate) 2 mg IVPUSH Q4H PRN PRN Reason: PAIN LEVEL 7 - 10 Last Admin: 10/30/19 01:39 Dose: 2 mg Documented by: - Objective Vital Signs: Vital Signs Temperature 98.2 F 10/31/19 10:00 Pulse Rate 84 10/31/19 10:00 Respiratory Rate 20 10/31/19 10:00 Blood Pressure 130/78 10/31/19 10:00 O2 Sat by Pulse Oximetry (%) 95 10/31/19 10:00 Constitutional: Yes: Mild Distress Cardiovascular: Yes: Regular Rate and Rhythm Respiratory: Yes: WNL Gastrointestinal: Yes: WNL Genitourinary: Yes: WNL Labs: CBC, BMP 10/30/19 07:20 10/30/19 07:20 Problem List - Problems (1) CAD (coronary artery disease) Code(s): I25.10 - ATHSCL HEART DISEASE OF [place] CORONARY ARTERY W/O ANG PCTRS (2) Complicated UTI (urinary tract infection) Code(s): N39.0 - URINARY TRACT INFECTION, SITE NOT SPECIFIED (3) Diabetes mellitus Code(s): E11.9 - TYPE 2 DIABETES MELLITUS WITHOUT COMPLICATIONS (4) Encounter for screening laboratory testing for COVID-19 virus Code(s): Z11.59 - ENCOUNTER FOR SCREENING FOR OTHER VIRAL DISEASES (5) HLD (hyperlipidemia) Code(s): E78.5 - HYPERLIPIDEMIA, UNSPECIFIED (6) HTN (hypertension) Code(s): I10 - ESSENTIAL (PRIMARY) HYPERTENSION (7) Hydronephrosis Code(s): N13.30 - UNSPECIFIED HYDRONEPHROSIS Assessment/Plan WORKUP PENDING IV ABX OOB TO CHAIR PAIN CONTROL DVT PROPHYLAXIS ELECTROLYTES REPLETED
--- NOTE | 2019-10-31 19:59 | CON.GU ---
Consult - History of Present Illness History of Present Illness: 69 yo female admitted with left flank pain. NCCT shows left hydronephrosis to level of prox ureter but no stone. Pt does have a h/o stones many years ago for which she passed spontaneously. She was recently seen at urgent care for gross hematuria and presumed UTI and was strated on antibiotic. No smoking history. 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 History of Recent Travel: No Home Medications - Allergies Allergies/Adverse Reactions: Allergies Allergy/AdvReac Type Severity Reaction Status Date / Time No Known Allergies Allergy Verified 10/29/19 19:13 - Home Medications Home Medications: Ambulatory Orders Aspirin [ASA -] 81 mg PO DAILY 05/13/13 Clopidogrel Bisulfate [Plavix -] 75 mg PO DAILY 05/13/13 Meclizine HCl [Antivert -] 25 mg PO PRN PRN 05/13/13 Metoprolol Succinate [Toprol XL -] 100 mg PO DAILY 05/13/13 metFORMIN HCL [Glucophage -] 500 mg PO BID 05/13/13 Atorvastatin Ca [Lipitor] 80 mg PO HS 09/12/16 Losartan Potassium 25 mg PO DAILY 04/25/18 Dulaglutide [Trulicity] 0 mg SQ WEEKLY 09/14/18 Cephalexin [Keflex] 500 mg PO BID 10/29/19 Family Medical History Family Hx Cancer: Father (Colon) Family Hx Coronary Artery Disease: Mother Physical Exam- Vital Signs: Vital Signs Temperature 98.0 F 10/31/19 18:00 Pulse Rate 92 H 10/31/19 18:00 Respiratory Rate 20 10/31/19 18:00 Blood Pressure 128/72 10/31/19 18:00 O2 Sat by Pulse Oximetry (%) 95 10/31/19 18:00 Kidneys: Yes: WNL Labs: CBC, BMP 10/30/19 07:20 10/30/19 07:20 Imaging - Results Cat Scan: Report Reviewed Problem List - Problems (1) Hydronephrosis Assessment/Plan: will need to repeat CT with IV contrast and delayed films to r/o left ureteral tumor or stricture Code(s): N13.30 - UNSPECIFIED HYDRONEPHROSIS
[2019-10-31] MEDS: ATORVASTATIN CA 40 MG TABLET (FP) PO SCH (21:42)
[2019-11-01] MEDS: MORPHINE SULFATE 2 MG/ML VIAL IVPUSH PRN (06:40)
[2019-11-01] MEDS: SODIUM CHLORIDE 1,000 ML IV SCH (06:41)
[2019-11-01] MEDS ORDERED: DEXTROSE 5%-WATER - 50 ML IVPB ONE (08:57)
[2019-11-01] MEDS ORDERED: cefTRIAXone SODIUM 1 GM VIAL ONE (08:57)
[2019-11-01 09:18] LABS: BASO % 0.5 % (0-2.0); EOS % 0.4 % (0-4.5); HEMOGLOBIN 13.5 GM/dl (10.7-15.3); LYMPH % 18.2 % (8-40); MCH 28.6 pg (25.7-33.7); MCHC 32.9 g/dl (32.0-36.0); MEAN CELL VOLUME 86.9 fl (80-96); MEAN PLT VOLUME 8.8 fl (7.5-11.1); MONO % 5.9 % (3.8-10.2); PLATELET COUNT 215 K/MM3 (134-434); RBC 4.72 M/mm3 (3.60-5.2); RDW 13.8 % (11.6-15.6); WHITE BLOOD COUNT 8.1 K/mm3 (4.0-10.8)
[2019-11-01 09:19] LABS: ALBUMIN 3.8 g/dl (3.4-5.0); BILIRUBIN,TOTAL 0.6 mg/dl (0.2-1); CALCIUM 9.2 mg/dl (8.5-10); TOT PROT 7.2 g/dl (6.4-8.2)
[2019-11-01] MEDS: LOSARTAN POTASSIUM 25 MG TABLET PO SCH (10:53)
[2019-11-01] MEDS: CEFTRIAXONE 1 GM in DEXTROSE 5%-WATER - 50 ML IVPB SCH (10:53)
[2019-11-01 14:43] VITALS: BP 137/76; PULSE 93; TEMP 98.7
--- NOTE | 2019-11-01 17:58 | DS ---
Physical Examination Vital Signs: Vital Signs Temperature 98.7 F 11/01/19 14:00 Pulse Rate 93 H 11/01/19 14:00 Respiratory Rate 18 11/01/19 14:00 Blood Pressure 137/76 11/01/19 14:00 O2 Sat by Pulse Oximetry (%) 96 11/01/19 14:00 Cardiovascular: Yes: Regular Rate and Rhythm Respiratory: Yes: Regular, CTA Bilaterally Gastrointestinal: Yes: Normal Bowel Sounds, Soft. No: Tenderness Labs: CBC, BMP 11/01/19 08:48 11/01/19 08:48 Discharge Summary Problems reviewed: Yes Reason For Visit: COMPLICATED URINARY TRACT INFECTION Current Active Problems CAD (coronary artery disease) (Acute) Complicated UTI (urinary tract infection) (Acute) Diabetes mellitus (Acute) Encounter for screening laboratory testing for COVID-19 virus (Acute) HLD (hyperlipidemia) (Acute) HTN (hypertension) (Acute) Hydronephrosis (Acute) Hospital Course: This is a 69 y/o female with a significant past medical history of Chronic Vertigo (on Meclizine at home), Hypertension, Diabetes, Hypercholesterolemia, Coronary Artery Disease s/p 2 stents. Who presents to the ED with nausea and left lower quadrant pain. The patient states after eating pizza this afternoon she had a gradual onset of left lower quadrant abdominal pain with associated nausea and the feeling to vomit. The patient states the pain is steady and radiates to her left flank, going to her back. She notes having pain like this in the past but not this severe and normally self resolves. The patient took pepto bismol thinking it could just be the pizza she ate but her symptoms persisted prompting her to come into the ED. The patient notes a kidney stone and kidney infection years ago but has had nothing recent. The patient currently has a UTI which she has been taking medication for for the past 2 days (diagnosed because she had visible blood in her urine). The patient denies fever/chills, cough, diarrhea, or chest pain. - Problems (1) Complicated UTI (urinary tract infection) Assessment/Plan: urine culture negative outpatient follow up Code(s): N39.0 - URINARY TRACT INFECTION, SITE NOT SPECIFIED (2) Hydronephrosis Assessment/Plan: CTAP- Renal stone protocol CT performedinterpreted by Dr. Guerra of the radiologist: Moderate left hydronephrosis with associated perirenal soft tissue stranding. There also was dilatation of the proximal third of the left ureter. No definite radiopaque urinary tract stones seen. No evidence of urinary tract mass lesion seen. Because of hydronephrosis without mass or stone being seen, additional imaging such as contrast enhanced CT/CT urography suggested. Appreciate Urology consult-outpatient follow up Code(s): N13.30 - UNSPECIFIED HYDRONEPHROSIS (3) Hematuria Assessment/Plan: may have passed a stone UA- +3 blood Appreciate Urology consult Code(s): R31.9 - HEMATURIA, UNSPECIFIED (4) CAD (coronary artery disease) Assessment/Plan: s/p Stents EKG reviewed Continue home meds with parameters Code(s): I25.10 - ATHSCL HEART DISEASE OF [place] CORONARY ARTERY W/O ANG PCTRS (5) Diabetes mellitus Assessment/Plan: stable BGMs Hold Metformin for now- NPO ISS, when diet resumed Monitor CMP Code(s): E11.9 - TYPE 2 DIABETES MELLITUS WITHOUT COMPLICATIONS (6) HTN (hypertension) Assessment/Plan: stable Monitor BP Continue home meds with parameters Monitor renal function Code(s): I10 - ESSENTIAL (PRIMARY) HYPERTENSION (7) HLD (hyperlipidemia) Assessment/Plan: stable Continue Lipitor Monitor LFTs Code(s): E78.5 - HYPERLIPIDEMIA, UNSPECIFIED (8) Vertigo Assessment/Plan: stable No acute flare Continue Meclizine prn Code(s): R42 - DIZZINESS AND GIDDINESS (9) Encounter for screening laboratory testing for COVID-19 virus Assessment/Plan: Low Risk COVID PCR- negative Isolation Precautions Code(s): Z11.59 - ENCOUNTER FOR SCREENING FOR OTHER VIRAL DISEASES Condition: Improved - Instructions Referrals: Jaylon Cee MD [Primary Care Provider] - 1 Week Talib Angulo MD [Staff Physician] - 2 Weeks Disposition: HOME - Home Medications Comprehensive Discharge Medication List: Ambulatory Orders Aspirin [ASA -] 81 mg PO DAILY 05/13/13 Clopidogrel Bisulfate [Plavix -] 75 mg PO DAILY 05/13/13 Meclizine HCl [Antivert -] 25 mg PO PRN PRN 05/13/13 Metoprolol Succinate [Toprol XL -] 100 mg PO DAILY 05/13/13 metFORMIN HCL [Glucophage -] 500 mg PO BID 05/13/13 Atorvastatin Ca [Lipitor] 80 mg PO HS 09/12/16 Losartan Potassium 25 mg PO DAILY 04/25/18
--- NOTE | 2019-11-01 18:31 | EKG ---
Test Reason : Blood Pressure : / mmHG Vent. Rate : 116 BPM Atrial Rate : 116 BPM P-R Int : 168 ms QRS Dur : 080 ms QT Int : 314 ms P-R-T Axes : 056 046 047 degrees QTc Int : 436 ms SINUS TACHYCARDIA OTHERWISE NORMAL ECG WHEN COMPARED WITH ECG OF 14-SEP-2018 08:41, NO SIGNIFICANT CHANGE WAS FOUND Confirmed by ROSEANNE CROWE MD ([id number]) on 11/01/2019 6:30:55 PM Referred By: MD VIRGEN Confirmed By:ROSEANNE CROWE MD
== END 2019-11-01 18:26 | disposition home or self-care (01) | DRG 690 ==
LOC: FER 19:04 → SUPCPDRO 19:04 → FM/S 22:32
PROVIDERS: ADMIT Internal Medicine; ATTEND Family Medicine
DX: N13.6 Pyonephrosis (principal); I10 Essential (primary) hypertension; E11.9 Type 2 diabetes mellitus without complications; I25.10 Atherosclerotic heart disease of native coronary artery without angina pectoris; E78.00 Pure hypercholesterolemia, unspecified; Z79.84 Long term (current) use of oral hypoglycemic drugs; R31.9 Hematuria, unspecified; R42 Dizziness and giddiness; R31.0 Gross hematuria; R00.0 Tachycardia, unspecified
CPT/HCPCS: 36415; 71045-TC-FY; 74176-TC; 74177-TC; 76775-TC; 80053; 81003; 81015; 82550; 82553; 84484; 85025; 87040; 87086; 93005; 97116-GP; 97161-GP; 99285-25; J0131; Q9967; U0003